=== PATIENT | female | born 1995 | race African-American/Black ===

== ENCOUNTER 2024-09-13 12:12 | Emergency (ER) | payer OTHER, SELFPAY ==
[2024-09-13 12:30] VITALS: BP 132/83; PULSE 80; RESP 16; TEMP 36.3; O2SAT 100
--- NOTE | 2024-09-13 12:43 | ED.URI ---
HPI - URI/Sore Throat General Chief Complaint: Upper Respiratory Infection Stated Complaint: NAUSEA/VOMITING/SORE THROAT/BLOOD IN MUCUS Time Seen by Provider: 09/13/24 12:36 Source: patient and RN notes reviewed Mode of arrival: ambulatory Limitations: no limitations History of Present Illness HPI Narrative: Patient presents today complaining of intermittent nausea x1 week with nasal congestion, headache, decreased appetite. She does report sore throat that started yesterday as well. Denies diarrhea, fever, abdominal pain. She has done 3 home tests that have been negative. Last was 2 days ago. She currently rates her pain 4/10 and has tried Anjelica and Tylenol without much relief. Related Data Home Medications ?Medication ?Instructions ?Recorded ?Confirmed ?Last Taken ?Type albuterol sulfate 90 mcg/actuation inhalation 09/13/24 Unknown History aerosol inhaler fluticasone furoate 100 inhalation 09/13/24 Unknown History mcg-vilanterol 25 mcg/dose inhalation powder (Breo Ellipta) Allergies Allergy/AdvReac Type Severity Reaction Status Date / Time pseudoephedrine (From Allergy Unknown Unknown Verified 09/13/24 12:30 Sudafed) Review of Systems Review of Systems: CONSTITUTIONAL: Denies body aches, fever, chills, or sweats. EYES: Denies visual changes, redness, or discharge. ENT: Denies rhinorrhea, or otalgia.+ sore throat, congestion CARDIOVASCULAR: Denies chest pain, palpitations, or edema. RESPIRATORY: Denies cough or dyspnea. GASTROINTESTINAL: Denies abdominal pain, vomiting, or diarrhea.+ nausea GENITOURINARY: Denies dysuria or hematuria. SKIN: Denies rash, itching, or wounds. MUSCULOSKELETAL: Denies back pain, joint pain, or myalgia. NEUROLOGIC: Denies numbness, tingling, or weakness.+ headache PSYCH: Denies depression or anxiety. PMFSH Comments At time of signature, I have reviewed and agree with nursing past medical, surgical, social and family history unless otherwise noted. Please see nursing chart for further information. There is no relevant family history pertinent to the presenting complaint Exam Narrative: GENERAL: Well-appearing, well-nourished, and in no acute distress. HEAD: Normocephalic, atraumatic. EYES: EOMI. No redness or drainage. Conjunctivae normal. ENT: Mucous membranes pink and moist. Nares clear. No rhinorrhea. TMs normal bilaterally. Throat with mild edema and erythema. Uvula midline. NECK: Normal AROM. Supple. No lymphadenopathy. CHEST: No respiratory distress. Clear to auscultation. HEART: Regular rate and rhythm. No murmur appreciated. ABDOMEN: Soft, nontender, nondistended, normal active bowel sounds. EXTREMITIES: Normal range of motion. No edema. SKIN: Warm, dry, no rash. Capillary refill normal. Normal skin turgor. NEURO: No focal deficits. Alert and oriented x3. Gait steady. PSYCH: Normal affect. No signs of depression or anxiety. Course Course Level of Care: Express Care Visit Vital Signs Vital signs: Vital Signs Temperature 97.4 F L 09/13/24 12:30 Pulse Rate 80 09/13/24 12:30 Respiratory Rate 16 09/13/24 12:30 Blood Pressure 132/83 09/13/24 12:30 Pulse Oximetry 100 09/13/24 12:30 Temperature 97.4 F L 09/13/24 12:30 Pulse Rate 80 09/13/24 12:30 Respiratory Rate 16 09/13/24 12:30 Blood Pressure 132/83 09/13/24 12:30 Pulse Oximetry 100 09/13/24 12:30 Reviewed MDM - URI/Sore Throat MDM Narrative Medical decision making narrative: Rapid strep negative. Culture pending. Symptoms likely viral in etiology. Discussed efyi-eim-pxiocbe medication use and duration of illness. Prescription for Zofran sent to pharmacy. Anticipatory guidance given. Differential Diagnosis Differential diagnosis: Likely upper respiratory infection, viral infection, pharyngitis and other (Strep) Lab Data Attestation: I reviewed the patient's lab results. Labs: Lab Results 09/13/24 Range/Units 12:56 POC Grp A Strep Screen Negative (Negative) Critical Care Time Critical Care Time Critical Care Time: No Discharge Plan Discharge Clinical Impression: Viral syndrome Patient Disposition: Home Condition: Stable Instructions: Acute Nausea and Vomiting (DC), Viral Syndrome (ED) Additional Instructions: Your rapid strep swab was negative today at [facility]. You will be notified in a few days if the culture comes back positive for strep, and appropriate antibiotics will be called in for you at that time. Your symptoms are likely due to a viral illness, which is not treated with antibiotics. Viral symptoms can be present for up to 7-10 days. Take Tylenol or ibuprofen for fever or pain. Take the Zofran for nausea. Rest and stay hydrated. Follow up with your PCP in 5 days if symptoms are not improving. Go to the ER immediately if you have any difficulty breathing or swallowing. Your blood pressure was elevated above 120/80 today at Urgent Care. This puts you above the threshold for follow up. Please schedule a followup visit with your personal physician as soon as possible, for further evaluation and treatment. Even blood pressure exceeding 120/80 may indicate pre-hypertension. Patient Language: [place] Island[place] Prescriptions: New ondansetron 8 mg tablet,disintegrating 8 mg PO Q4-6H PRN (Reason: nausea and vomiting) Qty: 20 0RF No Action albuterol sulfate 90 mcg/actuation HFA aerosol inhaler INHALATION fluticasone furoate-vilanterol [Breo Ellipta] 100-25 mcg/dose blister with device INHALATION Follow-up/Referrals: Reece,Laurie [Other] Stand Alone Forms: Work/School Release IP Time of Disposition: 13:11
[2024-09-13 12:57] LABS: EDSTREPNEGPOS1 Negative (Negative)
== END 2024-09-13 13:17 | disposition home or self-care (01) ==
PROVIDERS: Emergency Provider Nurse Practitioner
DX: B34.9 Viral infection, unspecified (principal); J45.909 Unspecified asthma, uncomplicated
CPT/HCPCS: 87081; 87880; 99213; G0463

== ENCOUNTER 2024-09-21 16:20 | Emergency (ER) | payer OTHER, SELFPAY ==
--- NOTE | ~2024-09-21 | XR_ITS ---
XR chest 2V Ordering provider: Dillon Velarde MD History: 28 years Female with . cp . Comparison: None. FINDINGS: MEDIASTINUM: The cardiac silhouette is not enlarged. LUNGS: No infiltrates, effusions or pneumothorax. OTHER: No free air under the diaphragm. IMPRESSION: No acute cardiopulmonary pathology. Reviewed, dictated and finalized at location A.
--- NOTE | 2024-09-21 16:21 | ECG_ITS ---
Test Date: 2024-09-21 16:24:27 Measurements Intervals Kiana Rate: 80 P: 47 WA: 136 QRS: -6 QRSD: 88 T: 4 QT: 350 QTc: 405 Interpretive Statements SINUS RHYTHM DELAYED PRECORDIAL R/S TRANSITION LOW QRS VOLTAGE IN PRECORDIAL LEADS BORDERLINE T WAVE ABNORMALITY- ANTEROLAT/INF LEADS BORDERLINE ECG No previous ECG available for comparison Electronically Signed On 09-21-2024 18:41:13 CDT by Trey Downey D.O.
--- OUTSIDE RECORDS SUMMARY | 2024-09-21 16:22 | XMS_ITS | Referral Summary ---
Author Organization [facility] Address [address] [place] [id number] Care Team Providers Care Locomotive Observer Name Role Phone Laurie Newell DO Primary Care Provider [phone]- [phone] Chaparro Reza MD Unavailable [phone] Encounters Date Type Department Care Team Description 07/14/2024 Results Follow-Up [facility] Pulmonology [address] [place] [address] [address] [place] [address] Chaparro Reza MD 07/14/2024 9:40 AM PASSENGER BRAKEMAN Lab [facility] Lab [address] [place] [address] Moderate persistent asthma with acute exacerbation 07/14/2024 8:30 AM PASSENGER BRAKEMAN Office Visit [facility] Pulmonology [address] [place] [address] [address] [place] [address] Chaparro Reza MD Pneumonia of both lungs due to infectious organism, unspecified part of lung; Moderate persistent asthma with acute exacerbation; Hilar adenopathy; Nodule of lower lobe of left lung 06/27/2024 Telephone [facility] Family Medicine at [place] [address] [facility] [address] [place] [phone] Laurie Newell DO Forms Request from Last 3 Months Allergies Active Allergy Reactions Criticality Noted Date Comments Pseudoephedrine Shortness of breath,Wheezing High Medications fexofenadine (SCOTT) 180 mg tabletIndicatio ns:Seasonal Allergic Rhinitis Take 1 tablet (180 mg total) by mouth nightly Active fluticasone propionate (FLONASE) 50 mcg/actuation nasal spray Administer 1 spray into each nostril nightly Active ibuprofen (ADVIL,MOTRIN) 800 mg tabletIndicatio ns:Anti-inflamm atory,Pain Take 1 tablet (800 mg total) by mouth 3 (three) times a day 21 tablet 1 Active acetaminophen (TYLENOL) 325 mg tablet Take 2 tablets (650 mg total) by mouth every 4 (four) hours as needed for pain 30 tablet 1 Active famotidine (PEPCID) 40 mg tablet Take 1 tablet (40 mg total) by mouth nightly as needed for heartburn for up to 20 days 20 tablet 1 Active buPROPion XL (WELLBUTRIN XL) 150 mg 24 hr tablet Take 1 tablet (150 mg total) by mouth daily 3 Active ipratropium-alb uteroL (DUO-NEB) 0.5-2.5 mg/3 mL nebulizer solution Take 3 mL by nebulization 4 (four) times a day as needed for wheezing 180 mL 11 5 Active montelukast (SINGULAIR) 10 mg tablet TAKE 1 TABLET(10 MG) BY MOUTH EVERY NIGHT 90 tablet 1 5 Active fluticasone furoate-vilante roL (Breo Ellipta) 100-25 mcg/dose diskus inhaler Inhale 1 puff daily Rinse mouth with water after use. Do not swallow. 3 each 5 11/10/19 25 Active albuterol HFA (PROVENTIL HFA,VENTOLIN HFA,PROAIR HFA) 90 mcg/actuation inhalerIndicati ons:Acute Asthma Attack,last used 02/2020 1 week ago Inhale 2 puffs every 4 (four) hours as needed for wheezing or shortness of breath 1 each 5 Active budesonide-form oteroL (SYMBICORT) 160-4.5 mcg/actuation inhaler Inhale 2 puffs 2 (two) times a day Rinse mouth with water after use. Do not swallow. 3 each 3 5 Active Active Problems Problem Noted Date Diagnosed Date Class 3 severe obesity due t o excess calories without serious comorbidity with body mass index (BMI) of 60.0 to 69.9 in adult 06/19/2024 Assessment & Plan (06/19/2024 9:33 AM PASSENGER BRAKEMAN): Weight reduction, daily exercise and dietary modifications recommended., as obesity can complicate their asthma Nodule of lower lobe of left lung 06/19/2024 Assessment & Plan (06/19/2024 9:34 AM PASSENGER BRAKEMAN): Nodule is stable when compared to CT scan of chest from 2020. Referred to pulmonology for further evaluation management. Hilar adenopathy 06/19/2024 Assessment & Plan (06/19/2024 9:34 AM PASSENGER BRAKEMAN): Noted on recent CT scan of chest, referred to pulmonology for further evaluation and management. Pneumonia of both lungs due to infectious organi sm 06/19/2024 Assessment & Plan (06/19/2024 9:34 AM PASSENGER BRAKEMAN): Clinically improved. Patient will be completing her Augmentin today. She finished a course of Z-Garfield and oral prednisone. Referred to pulmonology for further evaluation management. Right carpal tunnel syndrome 02/05/2020 Overview (02/05/2020): Added automatically from request for surgery [id number] Enlarged tonsils 08/08/2012 Bronchial asthma 03/26/2012 Assessment & Plan (06/19/2024 9:33 AM PASSENGER BRAKEMAN): History of asthma. Patient had been off medications for awhile because she lost insurance. She does have albuterol inhaler but has not tried to fern picker a Breo Ellipta yet. She is currently insured. Suggested that she try to download coupon for Breo Ellipta. Referred to pulmonology for further evaluation management. Encouraged patient to quit using cannabis, as this may be a trigger for her asthma. Hay fever 03/26/2012 Snoring 03/26/2012 Heart murmur 02/29/2012 Immunizations Immunization Administration Dates Next Due HPV, Quadrivalent 01/18/2011,12/28/2009,12/24/19 09 Hep A, Pediatric 01/18/2011,12/23/2008 Influenza, Quadrivalent, Spl it, Preservative Free, Intramuscular 04/19/2021 Influenza, Trivalent, Preser vative Free, Intramuscular 04/14/2024 Influenza, Unspecified 02/25/2023(Deferred: Nancy ent Refused) Meningococcal MCV4, Unspecified 02/24/2013 Pneumococcal Conjugate Pcv20 07/14/2024 Tdap 12/23/2008 Social History Tobacco Use Types Packs/Day Years Used Date Smoking Tobacco: Never Cigarettes Smokeless Tobacco: Never Tobacco Cessation:Counseling Given: Not Answered Alcohol Use Standard Drinks/Week Comments Yes 0 (1 standard drink = 0.6 oz pur e alcohol) 1 every 1-2 months AUDIT-C Answer Date Recorded Q1: How often do you have a drink containing alc ohol? Monthly or less 06/19/2024 Q2: How many drinks containi ng alcohol do you have on a typical day when you are drinking? 1 or 2 06/19/2024 Q3: How often do you have si x or more drinks on one occasion? Never 06/19/2024 PHQ-2 Answer Date Recorded PHQ-2 Total Score 2 06/19/2024 Personal Safety Answer Date Recorded Have you ever been in or are you currently in a harmful physical or emotional relationship or is someone making you feel afraid or unsafe? Denies 06/09/2024 Comments No Sex and Gender Information Value Date Recorded Sex Assigned at Not on file Legal Sex Female 4:31 AM PASSENGER BRAKEMAN Gender Identity Not on file Sexual Orientation Not on file Last Filed Vital Signs Vital Sign Reading Time Taken Comments Blood Pressure 145/88 07/14/2024 8:34 AM PASSENGER BRAKEMAN Pulse 95 07/14/2024 8:34 AM PASSENGER BRAKEMAN Temperature 36.6 C (97.9 F) 07/14/2024 8:34 AM PASSENGER BRAKEMAN Respiratory Rate 18 07/14/2024 8:34 AM PASSENGER BRAKEMAN Oxygen Saturation 98% 07/14/2024 8:34 AM PASSENGER BRAKEMAN Inhaled Oxygen Concentration - - Weight 193.2 kg (426 lb) 07/14/2024 8:34 AM PASSENGER BRAKEMAN Height 170.2 cm (5' 7.01 ) 07/14/2024 8:34 AM CS T Body Mass Index 66.71 07/14/2024 8:34 AM PASSENGER BRAKEMAN Plan of Treatment Not on file Procedures Procedure Name Priority Date/Time Associated Diagnosis Comments IGG Routine 07/14/2024 10:17 AM PASSENGER BRAKEMAN Moderate persistent asthma with acute exacerbation ANGIOTENSIN CONVERTING ENZYME Routine 07/14/2024 10:17 AM PASSENGER BRAKEMAN Moderate persistent asthma with acute exacerbation IGE Routine 07/14/2024 10:17 AM PASSENGER BRAKEMAN Moderate persistent asthma with acute exacerbation IGM Routine 07/14/2024 10:17 AM PASSENGER BRAKEMAN Moderate persistent asthma with acute exacerbation from Last 3 Months Results * (ABNORMAL) Angiotensin converting enzyme (07/14/2024 10:17 AM PASSENGER BRAKEMAN) ITKI 71(H) 10 - 55 Units/L Comment:Testing performed by : [facility], [address] [place]., [address] Blood 07/14/2024 10:1 7 AM PASSENGER BRAKEMAN 07/14/2024 1:48 PM PASSENGER BRAKEMAN Chaparro Reza MD LAB BLOOD ORDERABLES Final R esult Performing Organization Address [facility] de Phone Number [address] [employer] [place] [address] * (ABNORMAL) IgE (07/14/2024 10:17 AM PASSENGER BRAKEMAN) IgE 174(H) <=100 IUnits/mL Blood 07/14/2024 10:1 7 AM PASSENGER BRAKEMAN 07/14/2024 10:39 AM PASSENGER BRAKEMAN Chaparro Reza MD LAB BLOOD ORDERABLES Final R esult Performing Organization Address [facility] Co de Phone Number [address] [place] [place] [address] * IgM (07/14/2024 10:17 AM PASSENGER BRAKEMAN) Immunoglobulin M 67 40 - 230 mg/dL Blood 07/14/2024 10:1 7 AM PASSENGER BRAKEMAN 07/14/2024 10:39 AM PASSENGER BRAKEMAN Chaparro Reza MD LAB BLOOD ORDERABLES Final R esult Performing Organization Address [facility] Co de Phone Number [id number] [place] [address] * IgG (07/14/2024 10:17 AM PASSENGER BRAKEMAN) Immunoglobulin G 1,430 700 - 1,600 mg/dL Blood 07/14/2024 10:1 7 AM PASSENGER BRAKEMAN 07/14/2024 10:39 AM PASSENGER BRAKEMAN Chaparro Reza MD LAB BLOOD ORDERABLES Final R esult Performing Organization Address [facility] de Phone Number [id number] [place] [address] from Last 3 Months Insurance [employer] Address: [facility] [id number] [place] [id number] [employer] Address: [facility] [address] [place] [address] BERT DUNN [id number] Care Teams Locomotive Observer Relationship Specialty Start Date End Date Laurie Newell DO [address] [address] [address] [place] [address] PCP - General Family Medicine 06/19/24 Chaparro Reza MD [address] [facility] [address] [place] [address] Consulting Physician Pulmonary Disease 09/11/24
--- OUTSIDE RECORDS SUMMARY | 2024-09-21 16:22 | XMS_ITS | Clinical Summary ---
Author Organization [facility] Address [address] [place] [address] Care Team Providers Care Hot Bread Baker Name Role Phone Laurie Newell Primary Care Provider [phone] Chaparro Reza MD Unavailable [phone] Allergies Active Allergy Reactions Criticality Noted Date [...] 06/19/2024 Assessment & Plan (06/19/2024 9:33 AM FOOD AND BEVERAGE ANALYST): Weight reduction, daily exercise and dietary modifications recommended., as obesity can complicate their asthma Nodule of lower lobe of left lung 06/19/2024 Assessment & Plan (06/19/2024 9:34 AM FOOD AND BEVERAGE ANALYST): Nodule is stable when compared to CT scan of chest from 2020. Referred to pulmonology for further evaluation management. Hilar adenopathy 06/19/2024 Assessment & Plan (06/19/2024 9:34 AM FOOD AND BEVERAGE ANALYST): Noted on recent CT scan of chest, referred to pulmonology for further evaluation and management. Pneumonia of both lungs due to infectious organi sm 06/19/2024 Assessment & Plan (06/19/2024 9:34 AM FOOD AND BEVERAGE ANALYST): Clinically improved. Patient will be completing her Augmentin today. She finished a course of Z-Garfield and oral prednisone. Referred to pulmonology for further evaluation management. Right carpal tunnel syndrome 02/05/2020 Overview (02/05/2020): Added automatically from request for surgery [id number] Enlarged tonsils 08/08/2012 Bronchial asthma 03/26/2012 Assessment & Plan (06/19/2024 9:33 AM FOOD AND BEVERAGE ANALYST): History of asthma. Patient had been off medications for awhile because she lost insurance. She does have albuterol inhaler but has not tried to pick out hand a Breo Ellipta yet. She is currently insured. Suggested that she try to download coupon for Breo Ellipta. Referred to pulmonology for further evaluation management. Encouraged patient to quit using cannabis, as this may be a trigger for her asthma. Hay fever 03/26/2012 Snoring 03/26/2012 Heart murmur 02/29/2012 Encounters Date Type Department Care Team Description 07/14/2024 9:40 AM FOOD AND BEVERAGE ANALYST Lab [facility] Lab [address] [place] [address] Moderate persistent asthma with acute exacerbation 07/14/2024 8:30 AM FOOD AND BEVERAGE ANALYST Office Visit [facility] Pulmonology [address] [place] [address] [address] [place] [address] Chaparro Reza MD Pneumonia of both lungs due to infectious organism, unspecified part of lung; Moderate persistent asthma with acute exacerbation; Hilar adenopathy; Nodule of lower lobe of left lung 07/14/2024 Results Follow-Up [facility] Pulmonology [address] [place] [address] [address] [place] [address] Chaparro Reza MD 06/27/2024 Telephone [facility] Family Medicine at [place] [address] [facility] [address] [place] [address] Laurie Newell, Forms Request from Last 3 Months Immunizations Immunization Administration Dates Next Due HPV, Quadrivalent 01/18/2011,12/28/2009,12/24/19 09 Hep A, Pediatric 01/18/2011,12/23/2008 Influenza, Quadrivalent, Spl it, Preservative Free, Intramuscular 04/19/2021 Influenza, Trivalent, Preser vative Free, Intramuscular 04/14/2024 Influenza, Unspecified 02/25/2023(Deferred: Nancy ent Refused) Meningococcal MCV4, Unspecified 02/24/2013 Pneumococcal Conjugate Pcv20 07/14/2024 Tdap 12/23/2008 Surgical History Surgery Date Site/Laterality Comments CARPAL TUNNEL RELEASE Right DILATION AND CURETTAGE OF UTERUS Medical History Medical History Date Comments Asthma Seasonal allergies Carpal tunnel syndrome GERD (gastroesophageal reflux disease) Anxiety Depression Sleep apnea Family History Medical History Relation Name Comments Blood Clot Brother I.B. Heart disease Brother I.B. polyarteritis nodosa Brother I.B. Gout Father J.B. Hypertension Father J.B. Hypertension Mother L.B. Anesthesia problems Neg Hx Relation Name Status Comments Brother I.B. Alive Father J.B. Alive Mother L.B. Alive Social History Tobacco Use Types Packs/Day Years [...] on file Legal Sex Female 4:31 AM FOOD AND BEVERAGE ANALYST Gender Identity Not on file Sexual Orientation Not on file Obstetrics History Last Filed Vital Signs Vital Sign Reading Time Taken Comments Blood Pressure 145/88 07/14/2024 8:34 AM FOOD AND BEVERAGE ANALYST Pulse 95 07/14/2024 8:34 AM FOOD AND BEVERAGE ANALYST Temperature 36.6 C (97.9 F) 07/14/2024 8:34 AM FOOD AND BEVERAGE ANALYST Respiratory Rate 18 07/14/2024 8:34 AM FOOD AND BEVERAGE ANALYST Oxygen Saturation 98% 07/14/2024 8:34 AM FOOD AND BEVERAGE ANALYST Inhaled Oxygen Concentration - - Weight 193.2 kg (426 lb) 07/14/2024 8:34 AM FOOD AND BEVERAGE ANALYST Height 170.2 cm (5' 7.01 ) 07/14/2024 8:34 AM CS T Body Mass Index 66.71 07/14/2024 8:34 AM FOOD AND BEVERAGE ANALYST Plan of Treatment Health Maintenance Due Date Last Done Comments Hepatitis C Screening 1996 Hepatitis B Screening 2014 Regular Well Visit/Exam 18-64 2014 Covid-19 Vaccine ( season) 2025 09/22/2020, 09/01/2020 Postponed from 01/27/2024 (Patient declined, but will receive in the future) Depression Screening 06/19/2025 06/19/2024 Cervical Cancer Screening 07/18/2025 DTaP/Tdap/Td Vaccine (2 - Td or Tdap) 06/19/2027 12/23/2008 Postponed from 12/23/2018 (Insurance / Financial) HPV Vaccines Completed 01/18/2011, 12/28/2009, 12/23/2008 Influenza Vaccine Completed 04/14/2024, 04/19/2021 Pneumococcal vaccine <65 Completed 07/14/2024 Varicella Vaccines Discontinued Procedures Procedure Name Priority Date/Time Associated Diagnosis Comments IGG Routine 07/14/2024 10:17 AM FOOD AND BEVERAGE ANALYST Moderate persistent asthma with acute exacerbation ANGIOTENSIN CONVERTING ENZYME Routine 07/14/2024 10:17 AM FOOD AND BEVERAGE ANALYST Moderate persistent asthma with acute exacerbation IGE Routine 07/14/2024 10:17 AM FOOD AND BEVERAGE ANALYST Moderate persistent asthma with acute exacerbation IGM Routine 07/14/2024 10:17 AM FOOD AND BEVERAGE ANALYST Moderate persistent asthma with acute exacerbation from Last 3 Months Results * (ABNORMAL) Angiotensin converting enzyme (07/14/2024 10:17 AM FOOD AND BEVERAGE ANALYST) TIKI 71(H) 10 - 55 Units/L Comment:Testing performed by : [facility], [address] [facility]., [address] Blood 07/14/2024 10:1 7 AM FOOD AND BEVERAGE ANALYST 07/14/2024 1:48 PM FOOD AND BEVERAGE ANALYST Chaparro Reza MD LAB BLOOD ORDERABLES Final R esult Performing Organization Address City/[facility] Co de Phone Number [address] [place] [address] * (ABNORMAL) IgE (07/14/2024 10:17 AM FOOD AND BEVERAGE ANALYST) Pathologist [facility] IgE 174(H) <=100 IUnits/mL Blood 07/14/2024 10:1 7 AM FOOD AND BEVERAGE ANALYST 07/14/2024 10:39 AM FOOD AND BEVERAGE ANALYST Chaparro Reza MD LAB BLOOD ORDERABLES Final R esult Performing Organization Address City/[facility] Co de Phone Number [address] [place] [address] * IgM (07/14/2024 10:17 AM FOOD AND BEVERAGE ANALYST) Pathologist [facility] Immunoglobulin M 67 40 - 230 mg/dL Blood 07/14/2024 10:1 7 AM FOOD AND BEVERAGE ANALYST 07/14/2024 10:39 AM FOOD AND BEVERAGE ANALYST Chaparro Reza MD LAB BLOOD ORDERABLES Final R esult Performing Organization Address City/[facility] Co de Phone Number [address] [place] [address] * IgG (07/14/2024 10:17 AM FOOD AND BEVERAGE ANALYST) Pathologist [facility] Immunoglobulin G 1,430 700 - 1,600 mg/dL Blood 07/14/2024 10:1 7 AM FOOD AND BEVERAGE ANALYST 07/14/2024 10:39 AM FOOD AND BEVERAGE ANALYST Chaparro Reza MD LAB BLOOD ORDERABLES Final R esult [facility] [address] [facility] Department [place] [address] from Last 3 Months Insurance [employer] Address: [facility] [id number] [place] [address] [employer] Care Teams Hot Bread Baker Relationship Specialty Start Date End Date NewellLaurie DO Aleksander [address] [facility] [address] [place] [address] PCP - General Family Medicine 06/19/24 Chaparro Reza MD [address] [facility] [address] [place] [address] Consulting Physician Pulmonary Disease 09/11/24
--- OUTSIDE RECORDS SUMMARY | 2024-09-21 16:22 | XMS_ITS | Clinical Summary ---
Author Organization [facility] [place] Address [address] [place] [place] [address] Care Team Providers Care Domestic Technician Name Role Phone Sahara Bragg MD Primary Care Provider [phone] Source Comments [facility] and Associated Physician Practices is amultiple site organization consisting of ambulatory clinics and hospital sitesin [place], [place], [place] and [place]. This disclosure is being madepursuant to the Care Everywhere program and may not contain all information available regarding this patient. Last updated 18.[facility] [place] Allergies Active Allergy Reactions Criticality Noted Date Comments Pseudoephedrine Base Shortness of Breath,Swelling High 02/13/2019 Medications * Be aware that medications may not be up to date on this document. Alwaysverify current medications with the patient. famotidine (Pepcid) 40 MG tablet Take 1 (one) tablet by mouth as needed 02/15/2021 Active fluticasone-agustin anterol (Breo Ellipta) 100-25 MCG/INH inhaler INHALE 1 PUFF BY MOUTH ONCE DAILY AT THE SAME TIME EACH DAY 11/01/2020 Active albuterol HFA (Proventil; Ventolin; Proair) 108 (90 Base) MCG/ACT inhaler INHALE 2 PUFFS BY MOUTH EVERY 4 TO 6 HOURS NEEDED 11/01/2020 Active buPROPion XL 24hr (Wellbutrin-XL) 150 MG tablet 11/12/2022 Activ e fluticasone propionate (Flonase) 50 MCG/ACT nasal spray [place] 2 (two) sprays into each nostril once daily Active metFORMIN ER 24hr (Glucophage XR) 500 MG tablet Take 2 (two) tablets by mouth every evening 90 tablet 2 06/18/2023 Active Active Problems Problem Noted Date Diagnosed Date Class 3 severe obesity due t o excess calories with serious comorbidity and body mass index (BMI) of 60.0 to 69.9 in adult 01/22/2023 Prediabetes 01/22/2023 Unspecified asthma with (acute) exacerbation Wheezing 01/19/2022 Right carpal tunnel syndrome 02/05/2020 Overview (01/19/2022): Added automatically from request for surgery [id number] Enlarged tonsils 08/08/2012 Snoring 03/26/2012 Hay fever 03/26/2012 Bronchial asthma 03/26/2012 Heart murmur 02/29/2012 DELLA (obstructive sleep apnea) Immunizations Immunization Administration Dates Next Due HEP A PEDS 2 DOSE 01/18/2011,12/23/2008 Human Papilloma Virus Quadrivalent Vaccine 01/18,12/28/2009,12/23/2008 INFLUENZA VACCINE, QUADR. (F LUZONE; FLULAVAL; FLUARIX; AFLURIA QUADRIVALENT; 6MO+), 0.5 ML (IIV4) 04/19/2021 MENINGOCOCCAL ACWY (MCV4P) VAC IM 02/24/2013 TDAP, HISTORIC VACCINE 12/23/2008 Family History Medical History Relation Name Comments CAD (Coronary Artery Disease) Brother Arthritis - Osteo Father Hypertension Father Asthma Maternal Grandmother Diabetes - Type 2 Maternal Grandmother Hypertension Mother Cancer - Breast Other Diabetes - Type 2 Paternal Grandmother Hypertension Paternal Grandmother Relation Name Status Comments Brother Father Alive Maternal Grandmother Mother Alive Other Paternal Grandmother Social History Tobacco Use Types Packs/Day Years Used Date Smoking Tobacco: Never Smokeless Tobacco: Never Tobacco Cessation:Counseling Given: Not Answered Alcohol Use Standard Drinks/Week Comments Yes 0 (1 standard drink = 0.6 oz pur e alcohol) occ AUDIT-C Answer Date Recorded Q1: How often do you have a drink containing alc ohol? Never 08/10/2021 Average Number of Drinks Not on file 022 Q3: How often do you have si x or more drinks on one occasion? 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 file Not on file Last Filed Vital Signs Vital Sign Reading Time Taken Comments Blood Pressure 124/90 06/22/2023 11:31 AM MAINSPRING TORQUE TESTER Pulse 91 06/22/2023 11:31 AM [employer]INSPRING TORQUE TE[employer] Temperature 36.7 C (98 F) 06/22/2023 11:31 AM MAINSPRING TORQUE TESTER Respiratory Rate 17 05/14/2023 2:05 PM MAINSPRING TORQUE TESTER Oxygen Saturation 99% 06/22/2023 11:31 AM MAINSPRING TORQUE TESTER Inhaled Oxygen Concentration - - Weight 191.4 kg (422 lb) 06/22/2023 11:44 AM MAINSPRING TORQUE TESTER Height 167.6 cm (5' 6 ) 06/22/2023 11:44 AM MAINSPRING TORQUE TESTER Body Mass Index 68.11 06/22/2023 11:44 AM MAINSPRING TORQUE TESTER Plan of Treatment Health Maintenance Due Date Last Done Comments HIV SCREENING 10/07/2011 HEPATITIS C SCREENING 10/02/2014 HEPATITIS B VACCINE (1 of 3 - 19+ 3-dose series) 10/07/2015 PNEUMOCOCCAL VACCINE (1 of 2 - PCV) 10/07/2015 DTAP/TDAP/TD VACCINES (2 - T d or Tdap) 12/23/2018 12/23/2008 COVID-19 VACCINE (3 - 2023-2 5 season) 2024 09/22/2020, 09/01/2020 DEPRESSION SCREENING 05/28/2024 11/18/2022, 01/19/2022 INFLUENZA VACCINE (Season Ended) 2025 04/19/2021 PAP SMEAR 07/18/2025 07/18/2022, 12/28/2017 ZOSTER VACCINE (1 of 2) 2046 HPV VACCINE Completed 01/18/2011, 12/28/2009, 12/23/2008 MENINGOCOCCAL GROUPS A/C/Y/W VACCINE Completed 02/24/2013 HIB VACCINE Aged Out No longer eligi ble based on patient's age to complete this topic MENINGOCOCCAL (Group B) VACCINE SHARED DECISION-MAKING Aged Out No longer eligible based on patient's age to complete this topic Procedures Procedure Name Priority Date/Time Associated Diagnosis Comments PAP IG LB CT+NG+TV RFLX HPV ASCU Routine 07/18/2022 4:10 PM MAINSPRING TORQUE TESTER Well woman exam from Last 3 Months or Most Recently Relevant to Health Maintenance Results * PAP IG LB CT+NG+TV RFLX HPV ASCU (07/18/2022 4:10 PM MAINSPRING TORQUE TESTER) Diagnosis [facility] ACCOUNT BILL Comment:NEGATIVE FOR INTRAEP ITHELIAL LESION OR MALIGNANCY. Specimen Adequacy [facility] ACCOUNT BILL Comment: Satisfactory for evaluation. Endocervical and/or squamous metaplastic cells (endocervical component) are present. Clinician Provided ICD10 [facility] ACCOUNT BILL Comment: Z01.419 Z68.44 N92.1 Performed by [facility] ACCOUNT BILL Comment:Arik Grace, Electronics Supervisor (ASCP) Comment . [facility] ACCOUNT BILL Note [facility] ACCOUNT BILL Comment: The Pap smear is a screening test designed to aid in the detection of premalignant and malignant conditions of the uterine cervix. It is not a diagnostic procedure and should not be used as the sole means of detecting cervical cancer. Both false-positive and false-negative reports do occur. . IGLBP CPT Code Automation [facility] ACCOUNT BILL Comment: This liquid based ThinPrep(R) pap test was screened with the use of an image guided system. Note [facility] ACCOUNT BILL Comment: The HPV DNA reflex criteria were not met with this specimen result therefore, no HPV testing was performed. . Chlamydia trachomatis MASSIMO Negative Negative [facility] ACCOUNT BILL GC MASSIMO Negative Negative [facility] ACCOUNT BILL Trichomonas vaginalis by MASSIMO Negative Negative [facility] ACCOUNT BILL PART OF UTERINE CERVIX / Unknown 07/18/2022 4:10 PM MAINSPRING TORQUE TESTER 07/19/2022 Narrative [facility] ACCOUNT BILL - 07/24/2022 9:08 AM MAINSPRING TORQUE TESTER No. of containers..01 ThinPrep Vial Resulting Agency Comment Lab Testing performed at: [facility] [place] [id number] Jacquelyn Orozco DO LAB - PATHOLOGY/CYTOLOGY ORDERAB LES Final Result [facility] ACCOUNT BILL [id number] [place] [address] from Last 3 Months or Most Recently Relevant to Health Maintenance Insurance [facility] Care Teams Domestic Technician Relationship Specialty Start Date End Date Sahara Bragg MD [address] [place] [address] PCP - General Family Medicine 10/30/22
--- OUTSIDE RECORDS SUMMARY | 2024-09-21 16:22 | XMS_ITS | Clinical Summary ---
Author Organization [facility] Address [address] [place] [address] Phone Care Team Providers Care Media Professional Name Role Phone Unavailable Primary Care Provider Unavailabl e Social History Tobacco Use Types Packs/Day Years Used Date Smoking Tobacco: Never Assessed Comments Unknown Sex and Gender Information Value Date Recorded Sex Assigned at Not on file Legal Sex Female 2:52 PM COLOR MATCHER Gender Identity Not on file Sexual Orientation Not on file Plan of Treatment Health Maintenance Due Date Last Done Comments DTAP/TDAP/TD VACCINES (1 - Tdap) 10/07/2015 HEPATITIS B VACCINES (1 of 3 - 19+ 3-dose series) 10/07/2015 CERVICAL CANCER SCREENING 2017 HPV/Cotest (21-29) 2017 PAP SMEAR 2017 INFLUENZA VACCINE (#1) 2023 HPV VACCINES Aged Out No longer eligi ble based on patient's age to complete this topic
--- OUTSIDE RECORDS SUMMARY | 2024-09-21 16:22 | XMS_ITS | Encounter Summary ---
Author Organization [facility] Address [address] [place] [address] Care Team Providers Care Manager Stylist Name Role Phone Unavailable Primary Care Provider Unavailabl e Encounter Details Date Type Department Care Team (Late st Contact Info) Description 06/21/2021 Lab Requisition [facility] General Laboratory Services [address] [employer] [address] [place] [address] [facility], External Provider [address] [place] [address] Social History Tobacco Use Types Packs/Day Years Used Date Smoking Tobacco: Never Assessed Comments Unknown Sex and Gender Information Value Date Recorded Sex Assigned at Not on file Legal Sex Female 2:52 PM ASSOCIATE SOFTWARE APPLICATION ENGINEER Gender Identity Not on file Sexual Orientation Not on file documented as of this encounter Plan of Treatment Not on file documented as of this encounter Procedures Procedure Name Priority Date/Time Associated Diagnosis Comments CBC WITH DIFFERENTIAL Routine 06/21/2021 12:00 PM ASSOCIATE SOFTWARE APPLICATION ENGINEER VITAMIN D 25 HYDROXY Routine 06/21/2021 12:00 PM ASSOCIATE SOFTWARE APPLICATION ENGINEER TSH Routine 06/21/2021 12:00 PM ASSOCIATE SOFTWARE APPLICATION ENGINEER HEMOGLOBIN A1C Routine 06/21/2021 12:00 PM ASSOCIATE SOFTWARE APPLICATION ENGINEER LIPID PANEL Routine 06/21/2021 12:00 PM ASSOCIATE SOFTWARE APPLICATION ENGINEER COMPREHENSIVE METABOLIC PANEL Routine 06/21/2021 12:00 PM ASSOCIATE SOFTWARE APPLICATION ENGINEER documented in this encounter Results * (ABNORMAL) VITAMIN D 25 HYDROXY (06/21/2021 12:00 PM ASSOCIATE SOFTWARE APPLICATION ENGINEER) VITAMIN D TOTAL (25OH) 9(L) 30 - 100 ng/mL 06/21/2021 3:54 PM ASSOCIATE SOFTWARE APPLICATION ENGINEER [facility] [employer] [facility] Blood 06/21/2021 12:0 0 PM ASSOCIATE SOFTWARE APPLICATION ENGINEER 06/21/2021 2:59 PM ASSOCIATE SOFTWARE APPLICATION ENGINEER Narrative [facility] - 06/21/2021 3:54 PM ASSOCIATE SOFTWARE APPLICATION ENGINEER Interpretive Data Chart: Deficient: 0 - 20 ng/mL Insufficient: 21 - 29 ng/mL Sufficient: 30 - 100 ng/mL Increased Risk of Hypercalciuria: >100 ng/ml Toxic: >150 ng/ml External Provider [facility] CHEMISTRY ORDERABLES Fin al Result Performing Organization Address City/[facility]/ZIP Co de Phone Number [facility] CLIA# [id number] [address] [place] [address] * TSH (06/21/2021 12:00 PM ASSOCIATE SOFTWARE APPLICATION ENGINEER) TSH 2.46 0.27 - 4.20 uIU/mL 06/21/2021 3:45 PM [facility] [employer] [facility] Blood 06/21/2021 12:0 0 PM ASSOCIATE SOFTWARE APPLICATION ENGINEER 06/21/2021 2:59 PM ASSOCIATE SOFTWARE APPLICATION ENGINEER External Provider [facility] CHEMISTRY ORDERABLES Fin al Result Performing Organization Address [facility] Co de Phone Number [id number] [address] [place] [address] * (ABNORMAL) HEMOGLOBIN A1C (06/21/2021 12:00 PM ASSOCIATE SOFTWARE APPLICATION ENGINEER) HEMOGLOBIN A1C 5.9(H) <5.7 % 06/21/2021 4:01 PM ASSOCIATE SOFTWARE APPLICATION ENGINEER [facility] [employer] [facility] EST. AVG GLUCOSE, A1C 123 mg/dL 06/21/2021 4:01 PM ASSOCIATE SOFTWARE APPLICATION ENGINEER [facility] [employer] [facility] Blood 06/21/2021 12:0 0 PM ASSOCIATE SOFTWARE APPLICATION ENGINEER 06/21/2021 2:59 PM ASSOCIATE SOFTWARE APPLICATION ENGINEER Narrative [facility] [employer] [facility] - 06/21/2021 4:01 PM ASSOCIATE SOFTWARE APPLICATION ENGINEER HGB A1C INTERPRETATION NORMAL: <5.7% PRE-DIABETES: 5.7 - 6.4% DIABETES: 6.5% OR GREATER External Provider [facility] CHEMISTRY ORDERABLES Fin al Result [facility] CLIA# [id number] [address] [address] * (ABNORMAL) CBC WITH DIFFERENTIAL (06/21/2021 12:00 PM ASSOCIATE SOFTWARE APPLICATION ENGINEER) [facility] WBC 9.0 4.0 - 9.8 K/uL 06/21/2021 3:27 PM ASSOCIATE SOFTWARE APPLICATION ENGINEER [facility] RBC 5.42(H) 3.90 - 4.90 M/uL 06/21/2021 3:27 PM ASSOCIATE SOFTWARE APPLICATION ENGINEER [facility] HEMOGLOBIN 14.0 11.8 - 14.8 g/dL 06/21/2021 3:27 PM ASSOCIATE SOFTWARE APPLICATION ENGINEER [facility] HEMATOCRIT 45.0(H) 35.5 - 44.0 % 06/21/2021 3:27 PM ASSOCIATE SOFTWARE APPLICATION ENGINEER [facility] MCV 83.0 82.0 - 99.0 fL 06/21/2021 3:27 PM ASSOCIATE SOFTWARE APPLICATION ENGINEER [facility] MCH 25.8(L) 27.2 - 32.6 pg 06/21/2021 3:27 PM ASSOCIATE SOFTWARE APPLICATION ENGINEER [facility] MCHC 31.1(L) 31.5 - 35.5 g/dL 06/21/2021 3:27 PM ASSOCIATE SOFTWARE APPLICATION ENGINEER [facility] RDW 14.4 11.5 - 14.5 % 06/21/2021 3:27 PM ASSOCIATE SOFTWARE APPLICATION ENGINEER [facility] RDW-STDEV 43.6 37.1 - 48.7 fL 06/21/2021 3:27 PM ASSOCIATE SOFTWARE APPLICATION ENGINEER [facility] PLATELETS 262 140 - 350 K/uL 06/21/2021 3:27 PM ASSOCIATE SOFTWARE APPLICATION ENGINEER [facility] MPV 10.8 9.3 - 12.4 fL 06/21/2021 3:27 PM ASSOCIATE SOFTWARE APPLICATION ENGINEER [facility] NEUTROPHILS 61 % 06/21/2021 3:27 PM [facility] LYMPHOCYTES 26 % 06/21/2021 3:27 PM [facility] MONOCYTES 6 % 06/21/2021 3:27 PM [facility] EOSINOPHILS 6 % 06/21/2021 3:27 PM [facility] BASOPHILS 1 % 06/21/2021 3:27 PM [facility] IMMATURE GRANULOCYTES 0 % 06/21/2021 3:27 PM [facility] NEUTROPHIL ABSOLUTE 5.44 1.90 - 7.00 K/uL 06/21/2021 3:27 PM [facility] LYMPHOCYTE ABSOLUTE 2.34 0.70 - 4.50 K/uL 06/21/2021 3:27 PM [facility] MONOCYTE ABSOLUTE 0.57 0.10 - 1.30 K/uL 06/21/2021 3:27 PM [facility] EOSINOPHIL ABSOLUTE 0.53 0.00 - 0.70 K/uL 06/21/2021 3:27 PM [facility] BASOPHILS ABSOLUTE 0.08 0.00 - 0.20 K/uL 06/21/2021 3:27 PM [facility] IMMATURE GRANULOCYTES ABSOLUTE 0.03 0.00 - 0.03 K/uL 06/21/2021 3:27 PM [facility] Blood 06/21/2021 12:0 0 PM ASSOCIATE SOFTWARE APPLICATION ENGINEER 06/21/2021 2:59 PM ASSOCIATE SOFTWARE APPLICATION ENGINEER us External Provider [facility] HEMATOLOGY ORDERABLES Fi nal Result [facility] CLIA# [id number] [address] [place] [address] * (ABNORMAL) LIPID PANEL (06/21/2021 12:00 PM ASSOCIATE SOFTWARE APPLICATION ENGINEER) CHOLESTEROL 216(H) <200 mg/dL 06/21/2021 3:39 PM ASSOCIATE SOFTWARE APPLICATION ENGINEER [facility] TRIGLYCERIDE 77 <150 mg/dL 06/21/2021 3:39 PM [facility] HDL 46 40 - 59 mg/dL 06/21/2021 3:39 PM [facility] LDL CALCULATED 155(H) <100 mg/dL 06/21/2021 3:39 PM [facility] [employer] [facility] NON-HDL CHOLESTEROL 170(H) <130 mg/dL 06/21/2021 3:39 PM [facility] [employer] [facility] Blood 06/21/2021 12:0 0 PM ASSOCIATE SOFTWARE APPLICATION ENGINEER 06/21/2021 2:59 PM ASSOCIATE SOFTWARE APPLICATION ENGINEER Critical access hospital [employer] [facility] - 06/21/2021 3:39 PM ASSOCIATE SOFTWARE APPLICATION ENGINEER TOTAL CHOLESTEROL mg/dL Desirable <200 Borderline high 200-239 High >=240 TRIGLYCERIDES mg/dL Normal <150 Borderline high 150-199 High 200-499 Very high >=500 HDL CHOLESTEROL mg/dL Low <40 Normal 40-59 Desirable >=60 NON HDL CHOLESTEROL mg/dL Optimal <130 Near Optimal 130-159 Borderline High 160-189 Very High >=190 CALCULATED LDL mg/dL LDL <70, OPTIMAL if have Atherosclerotic cardiovascular disease (ASCVD) or intermediate or higher (>7.5%) 10 year risk of ASCVD including most adults with diabetes. LDL <100, Optimal in adult patients with low (<7.5%) 10 year ASCVD risk LDL 100-160, Suboptimal LDL >160, High LDL >190, Very high ATPIII Guidelines Reference Ranges for Lipid Panels (NCEP/AMA) . us External Provider [facility] CHEMISTRY ORDERABLES Fin al Result [facility] [employer] [facility] CLIA# [id number] [address] [place] [place] [id number] * (ABNORMAL) COMPREHENSIVE METABOLIC PANEL (06/21/2021 12:00 PM ASSOCIATE SOFTWARE APPLICATION ENGINEER) SODIUM 137 136 - 145 mmol/L 06/21/2021 3:39 PM [facility] [employer] [facility] POTASSIUM 4.3 3.5 - 5.0 mmol/L 06/21/2021 3:39 PM [facility] CHLORIDE 103 98 - 107 mmol/L 06/21/2021 3:39 PM [facility] CO2 24 22 - 29 mmol/L 06/21/2021 3:39 PM [facility] CALCIUM 9.6 8.6 - 10.2 mg/dL 06/21/2021 3:39 PM [facility] BUN 10 6 - 20 mg/dL 06/21/2021 3:39 PM [facility] - . [facility] CREATININE 0.85 0.51 - 0.95 mg/dL 06/21/2021 3:39 PM [facility] GLUCOSE 106(H) 74 - 99 mg/dL 06/21/2021 3:39 PM [facility] - . [facility] TOTAL PROTEIN 8.0 6.7 - 8.6 g/dL 06/21/2021 3:39 PM [facility] ALBUMIN 4.2 3.5 - 5.2 g/dL 06/21/2021 3:39 PM [facility] BILIRUBIN TOTAL 0.3 0.3 - 1.2 mg/dL 06/21/2021 3:39 PM [facility] - . [facility] ALKALINE PHOSPHATASE 106(H) 35 - 104 U/L 06/21/2021 3:39 PM [facility] - . [facility] AST 15 <33 U/L 06/21/2021 3:39 PM [facility] - . [facility] ALT 17 <34 U/L 06/21/2021 3:39 PM [facility] - [facility] GFR >60 >=60 mL/min/1. 73 sq meter 06/21/2021 3:39 PM [facility] Comment: eGFR calculated with 2020 CKD-EPI equation. Vegetarian diet, extremely high or low muscle mass, and may affect results. Cystatin C with Glomerular Filtration Rate is a suitable alternative for these patients. The National Kidney Foundation and the [place] Society of Nephrology (NKF-ASN) recommends using the 2020 CKD Epidemiology Collaboration (CKD-EPI) equation to calculate estimated glomerular filtration rate (eGFR). This equation is only applicable to [place] adult patients and removes race as a variable. Due to the variation of creatinine in different conditions, they recommend use of confirmatory tests such as eGFR from cystatin C or creatinine-cystatin GFR estimating equations, or direct measurement of clearance of an exogenous filtration marker in critical clinical decisions including but not limited to drug dosing, surgery, chemotherapy, and transplant referral. ANION GAP 10 8 - 16 mmol/L 06/21/2021 3:39 PM ASSOCIATE SOFTWARE APPLICATION ENGINEER [facility] Blood 06/21/2021 12:0 0 PM ASSOCIATE SOFTWARE APPLICATION ENGINEER 06/21/2021 2:59 PM ASSOCIATE SOFTWARE APPLICATION ENGINEER Narrative [facility] - 06/21/2021 3:39 PM ASSOCIATE SOFTWARE APPLICATION ENGINEER Samples containing indocyanine green cause interferences on Total and/or Direct Bilirubin and must not be measured. us External Provider [facility] CHEMISTRY ORDERABLES Fin al Result [facility] CLIA# [id number] [address] [place] [address] documented in this encounter Visit Diagnoses Not on filedocumented in this encounter
[2024-09-21 16:23] VITALS: BP 149/95; PULSE 85; RESP 18; TEMP 36.3; O2SAT 98
[2024-09-21 17:13] LABS: Basophils Absolute Auto 0.1 K/mm3 (0.0-0.1); Basophils Percent Auto 0.7 % (0.2-1.2); Eosinophils Absolute Auto 0.5 K/mm3 (0-0.3); Eosinophils Percent Auto 6.1 % (0-4.4); Hematocrit 43.1 % (37.0-47.0); Hemoglobin 13.5 g/dL (12.0-15.0); Immature Granulocyte Absolute 0.02 K/mm3 (0.00-0.031); Immature Granulocyte Percent A 0.2 % (0-0.5); Lymphocytes Percent Auto 34.5 % (18.3-44.2); Mean Corpuscular HGB Conc 31.3 g/dl (32-36); Mean Corpuscular Hemoglobin 26.4 pg (26-34); Mean Corpuscular Volume 84.3 fl (80-100); Mean Platelet Volume 10.4 fl (7.4-10.4); Monocytes Absolute Auto 0.6 K/mm3 (0.1-0.6); Neutrophils Absolute Auto 4.3 K/mm3 (1.3-6.7); Neutrophils Percent Auto 51.5 % (45.5-73.1); Platelet Count Result 241 k/mm3 (150-375); Red Blood Count 5.11 M/mm3 (4.2-5.4); Red Cell Distribution Width 13.9 % (11.5-14.5); White Blood Count 8.4 K/mm3 (4.5-10.0)
[2024-09-21 17:26] LABS: Alanine Aminotransferase 24 U/L (6-35); Albumin Level 4.3 g/dL (3.5-5.1); Alkaline Phosphatase 95 U/L (38-126); Anion Gap 7 mmol/L (4-12); Aspartate Amino Transferase 23 U/L (14-36); Bilirubin,Total 0.4 mg/dL (0.2-1.3); Blood Urea Nitrogen 18 mg/dL (7-17); Calcium 8.9 mg/dL (8.4-10.2); Carbon Dioxide 26 mmol/L (22-30); Chloride 106 mmol/L (98-107); Estimated CRCL calculation 166 ml/min; Estimated Glomerular Filt Rate > 60; Glucose 96 mg/dL (65-110); Lipase 81 U/L (23-300); Potassium 4.1 mmol/L (3.4-5.0); Sodium 139 mmol/L (137-145)
[2024-09-21 17:37] LABS: Troponin I < 0.012 ng/mL (0.000-0.034)
--- OUTSIDE RECORDS SUMMARY | 2024-09-21 20:05 | XMS_ITS | Clinical Summary ---
Author Organization [facility] [employer] Address [address] [place] [address] Care Team Providers Care Public Interviewer Name Role Phone Sahara Bragg MD Primary Care Provider [phone] Source Comments [facility] and Associated Physician Practices is amultiple site organization consisting of ambulatory clinics and hospital sitesin [place], [place], [place] and [place]. This disclosure is being madepursuant to the Care Everywhere program and may not contain all information available regarding this patient. Last updated 18.[facility] [employer] Allergies Active Allergy Reactions Criticality Noted Date [...] fluticasone propionate (Flonase) 50 MCG/ACT nasal spray [place] 2 (two) sprays into each nostril once [...] (01/19/2022): Added automatically from request for surgery [id number] Enlarged tonsils 08/08/2012 Snoring 03/26/2012 Hay fever [...] Industry Job Start Date Job End Date 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 Not on file Last Filed Vital Signs Vital Sign Reading Time Taken Comments Blood Pressure 124/90 06/22/2023 11:31 AM [employer] [facility] Pulse 91 06/22/2023 11:31 AM [employer] Temperature 36.7 C (98 F) 06/22/2023 11:31 AM [facility] Respiratory Rate 17 05/14/2023 2:05 PM [employer] [facility] Oxygen Saturation 99% 06/22/2023 11:31 AM [facility] Inhaled Oxygen Concentration - - Weight 191.4 kg (422 lb) 06/22/2023 11:44 AM [facility] Height 167.6 cm (5' 6 ) 06/22/2023 11:44 AM [facility] Body Mass Index 68.11 06/22/2023 11:44 AM [facility] Plan of Treatment Health Maintenance Due Date [...] RFLX HPV ASCU Routine 07/18/2022 4:10 PM [employer] [facility] Well woman exam from Last 3 Months or Most Recently Relevant to Health Maintenance Results * PAP IG LB CT+NG+TV RFLX HPV ASCU (07/18/2022 4:10 PM [facility]) Diagnosis [facility] ACCOUNT BILL Comment:NEGATIVE FOR INTRAEP ITHELIAL LESION OR MALIGNANCY. Specimen Adequacy [facility] ACCOUNT BILL Comment: Satisfactory for evaluation. Endocervical and/or squamous metaplastic cells (endocervical component) are present. Clinician Provided ICD10 [facility] ACCOUNT BILL Comment: Z01.419 Z68.44 N92.1 Performed by [facility] ACCOUNT BILL Comment:Arik Grace, Human Capital Analyst (ASCP) Comment . [facility] ACCOUNT BILL Note [...] UTERINE CERVIX / Unknown 07/18/2022 4:10 PM [facility] 07/19/2022 Narrative [facility] ACCOUNT BILL - 07/24/2022 9:08 AM [facility] No. of containers..01 ThinPrep Vial Resulting Agency Comment Lab Testing performed at: [employer] [place] [id number] Jacquelyn Orozco DO LAB - PATHOLOGY/CYTOLOGY ORDERAB LES Final Result [facility] ACCOUNT BILL [id number] [place] [address] from Last 3 Months or Most Recently Relevant to Health Maintenance [facility] Care Teams Public Interviewer Relationship Specialty Start Date End Date Sahara Bragg MD [address] [place] [address] PCP - General Family Medicine 10/30/22
--- OUTSIDE RECORDS SUMMARY | 2024-09-21 20:05 | XMS_ITS | Encounter Summary ---
Author Organization [employer] Address [address] [place] [address] Care Team Providers Care White Washer Piler Name Role Phone Unavailable Primary Care Provider Unavailabl e Encounter Details Date Type Department Care Team (Late st Contact Info) Description 06/21/2021 Lab Requisition [facility] General Laboratory Services [address] [address] [facility], External Provider [address] [address] Social History Tobacco Use Types Packs/Day Years Used Date Smoking Tobacco: Never Assessed Comments Unknown Sex and Gender Information Value Date Recorded Sex Assigned at Not on file Legal Sex Female 2:52 PM BALL SORTER Gender Identity Not on file Sexual Orientation Not on file documented as of this encounter Plan of Treatment Not on file documented as of this encounter Procedures Procedure Name Priority Date/Time Associated Diagnosis Comments CBC WITH DIFFERENTIAL Routine 06/21/2021 12:00 PM BALL SORTER VITAMIN D 25 HYDROXY Routine 06/21/2021 12:00 PM [facility] SORTER TSH Routine 06/21/2021 12:00 PM [facility] HEMOGLOBIN A1C Routine 06/21/2021 12:00 PM [facility] S[facility]TER LIPID PANEL Routine 06/21/2021 12:00 PM [facility]TER COMPREHENSIVE METABOLIC PANEL Routine 06/21/2021 12:00 PM BALL SORTER documented in this encounter Results * (ABNORMAL) VITAMIN D 25 HYDROXY (06/21/2021 12:00 PM BALL SORTER) VITAMIN D TOTAL (25OH) 9(L) 30 - 100 ng/mL 06/21/2021 3:54 PM BALL SORTER [facility] [employer] [facility] Blood 06/21/2021 12:0 0 PM BALL SORTER 06/21/2021 2:59 PM BALL SORTER Narrative [facility] - 06/21/2021 3:54 PM BALL SORTER Interpretive Data Chart: Deficient: 0 - 20 ng/mL Insufficient: 21 - 29 ng/mL Sufficient: 30 - 100 ng/mL Increased Risk of Hypercalciuria: >100 ng/ml Toxic: >150 ng/ml External Provider [facility] CHEMISTRY ORDERABLES Fin al Result Performing Organization Address City/[facility]/ZIP Co de Phone Number [facility] CLIA# [id number] [address] [place] [address] * TSH (06/21/2021 12:00 PM BALL SORTER) TSH 2.46 0.27 - 4.20 uIU/mL 06/21/2021 3:45 PM [facility] [employer] [facility] Blood 06/21/2021 12:0 0 PM BALL SORTER 06/21/2021 2:59 PM BALL SORTER External Provider [facility] CHEMISTRY ORDERABLES Fin al Result Performing Organization Address [facility] Co de Phone Number [id number] [address] [place] [address] * (ABNORMAL) HEMOGLOBIN A1C (06/21/2021 12:00 PM BALL SORTER) HEMOGLOBIN A1C 5.9(H) <5.7 % 06/21/2021 4:01 PM BALL SORTER [facility] [employer] [facility] EST. AVG GLUCOSE, A1C 123 mg/dL 06/21/2021 4:01 PM BALL SORTER [facility] [employer] [facility] Blood 06/21/2021 12:0 0 PM BALL SORTER 06/21/2021 2:59 PM BALL SORTER Narrative [facility] [employer] [facility] - 06/21/2021 4:01 PM BALL SORTER HGB A1C INTERPRETATION NORMAL: <5.7% PRE-DIABETES: 5.7 - 6.4% DIABETES: 6.5% OR GREATER External Provider [facility] CHEMISTRY ORDERABLES Fin al Result [employer] [facility]ORATORY SERVICES - [facility] CLIA# [id number] [address] [place] [address] * (ABNORMAL) CBC WITH DIFFERENTIAL (06/21/2021 12:00 PM BALL SORTER) [facility] WBC 9.0 4.0 - 9.8 K/uL 06/21/2021 3:27 PM B[facility] S[facility]TER [employer] [facility] - [facility] RBC 5.42(H) 3.90 - 4.90 M/uL 06/21/2021 3:27 PM B[facility] S[facility]TER [employer] [facility] - [facility] HEMOGLOBIN 14.0 11.8 - 14.8 g/dL 06/21/2021 3:27 PM BALL SORTER [employer] [facility] - [facility] HEMATOCRIT 45.0(H) 35.5 - 44.0 % 06/21/2021 3:27 PM BALL SORTER [employer] [facility] - [facility] MCV 83.0 82.0 - 99.0 fL 06/21/2021 3:27 PM B[facility] S[facility]TER [employer] [facility] - [facility] MCH 25.8(L) 27.2 - 32.6 pg 06/21/2021 3:27 PM B[facility] S[facility]TER [employer] [facility] - [facility] MCHC 31.1(L) 31.5 - 35.5 g/dL 06/21/2021 3:27 PM BALL SORTER [employer] [facility] - [facility] RDW 14.4 11.5 - 14.5 % 06/21/2021 3:27 PM B[facility] S[facility]TER [employer] [facility] - [facility] RDW-STDEV 43.6 37.1 - 48.7 fL 06/21/2021 3:27 PM B[facility] SORTER [employer] [facility] - [facility] PLATELETS 262 140 - 350 K/uL 06/21/2021 3:27 PM BALL SORTER [employer] [facility] - [facility] MPV 10.8 9.3 - 12.4 fL 06/21/2021 3:27 PM BALL SORTER [employer] [facility] - [facility] NEUTROPHILS 61 % 06/21/2021 3:27 PM [facility] LABORATORY SERVICES - [facility] LYMPHOCYTES 26 % 06/21/2021 3:27 PM [facility] LAB[facility]ATORY SERVICES - [facility] MONOCYTES 6 % 06/21/2021 3:27 PM [facility] LABORATORY SERVICES - [facility] EOSINOPHILS 6 % 06/21/2021 3:27 PM [facility] LABORATORY SERVICES - [facility] BASOPHILS 1 % 06/21/2021 3:27 PM [facility] LABORATORY SERVICES - [facility] IMMATURE GRANULOCYTES 0 % 06/21/2021 3:27 PM [facility] LABORATORY SERVICES - [facility] NEUTROPHIL ABSOLUTE 5.44 1.90 - 7.00 K/uL 06/21/2021 3:27 PM [facility] LABORATORY SERVICES - [facility] LYMPHOCYTE ABSOLUTE 2.34 0.70 - 4.50 K/uL 06/21/2021 3:27 PM [facility] LABORATORY SERVICES - [facility] MONOCYTE ABSOLUTE 0.57 0.10 - 1.30 K/uL 06/21/2021 3:27 PM [facility] LABORATORY SERVICES - [facility] EOSINOPHIL ABSOLUTE 0.53 0.00 - 0.70 K/uL 06/21/2021 3:27 PM [facility] LABORATORY SERVICES - [facility] BASOPHILS ABSOLUTE 0.08 0.00 - 0.20 K/uL 06/21/2021 3:27 PM [facility] LABORATORY SERVICES - [facility] IMMATURE GRANULOCYTES ABSOLUTE 0.03 0.00 - 0.03 K/uL 06/21/2021 3:27 PM [facility] LABORATORY SERVICES - [facility] Blood 06/21/2021 12:0 0 PM BALL SORTER 06/21/2021 2:59 PM BALL SORTER us External Provider [facility] HEMATOLOGY ORDERABLES Fi nal Result [facility] LABORATORY SERVICES - [facility] CLIA# [id number] [address] [place] [address] * (ABNORMAL) LIPID PANEL (06/21/2021 12:00 PM BALL SORTER) CHOLESTEROL 216(H) <200 mg/dL 06/21/2021 3:39 PM BALL SORTER [facility] LABORATORY [facility] TRIGLYCERIDE 77 <150 mg/dL 06/21/2021 3:39 PM [facility] HDL 46 40 - 59 mg/dL 06/21/2021 3:39 PM [facility] LDL CALCULATED 155(H) <100 mg/dL 06/21/2021 3:39 PM [facility] [employer] [facility] NON-HDL CHOLESTEROL 170(H) <130 mg/dL 06/21/2021 3:39 PM [facility] [employer] [facility] Blood 06/21/2021 12:0 0 PM BALL SORTER 06/21/2021 2:59 PM BALL SORTER [facility] [employer] [facility] - 06/21/2021 3:39 PM BALL SORTER TOTAL CHOLESTEROL mg/dL Desirable <200 Borderline high [...] Lipid Panels (NCEP/AMA) . us External Provider [facility] CHEMISTRY ORDERABLES Fin al Result [facility] [employer] [facility] CLIA# [id number] [address] [place] [address] * (ABNORMAL) COMPREHENSIVE METABOLIC PANEL (06/21/2021 12:00 PM BALL SORTER) SODIUM 137 136 - 145 mmol/L 06/21/2021 3:39 PM [facility] [employer] [facility] POTASSIUM 4.3 3.5 - 5.0 mmol/L 06/21/2021 3:39 PM [facility] [employer] LABORATORY SERVICES - [facility] CHLORIDE 103 98 - 107 mmol/L 06/21/2021 3:39 PM [facility] [employer] [facility]ATORY [facility] - [facility] CO2 24 22 - 29 mmol/L 06/21/2021 3:39 PM [facility] . [facility] CALCIUM 9.6 8.6 - 10.2 mg/dL 06/21/2021 3:39 PM [facility] LABORATORY SERVICES - [facility] BUN 10 6 - 20 mg/dL 06/21/2021 3:39 PM [facility] - . [facility] CREATININE 0.85 0.51 - 0.95 mg/dL 06/21/2021 3:39 PM [facility] [employer] LABORATORY SERVICES - . [facility] GLUCOSE 106(H) 74 - 99 mg/dL 06/21/2021 3:39 PM [facility] [employer] LABORATORY SERVICES - . [facility] TOTAL PROTEIN 8.0 6.7 - 8.6 g/dL 06/21/2021 3:39 PM [facility] [employer] LAB[facility]ATORY SERVICES - [facility] ALBUMIN 4.2 3.5 - 5.2 g/dL 06/21/2021 3:39 PM [facility] [employer] [facility]ORY SERVICES - [facility] BILIRUBIN TOTAL 0.3 0.3 - 1.2 mg/dL 06/21/2021 3:39 PM [facility] [employer] LABORATORY [facility] - . [facility] ALKALINE PHOSPHATASE 106(H) 35 - 104 U/L 06/21/2021 3:39 PM [facility] [employer] LABORATORY SERVICES - . [facility] AST 15 <33 U/L 06/21/2021 3:39 PM [facility] [employer] LABORATORY SERVICES - . [facility] ALT 17 <34 U/L 06/21/2021 3:39 PM [facility] [employer] LABORATORY SERVICES - . [facility] GFR >60 >=60 mL/min/1. 73 sq meter 06/21/2021 3:39 PM [facility] [employer] LABORATORY SERVICES - . [facility] Comment: eGFR calculated with 2020 CKD-EPI equation. Vegetarian diet, extremely high or low muscle mass, and may affect results. Cystatin C with Glomerular Filtration Rate is a suitable alternative for these patients. The National Kidney [employer] and the [place] [employer]ph[employer] (NKF-ASN) recommends using the [...] 8 - 16 mmol/L 06/21/2021 3:39 PM BALL SORTER [facility] Blood 06/21/2021 12:0 0 PM BALL SORTER 06/21/2021 2:59 PM B[facility] SORTER Narrative [facility] - 06/21/2021 3:39 PM B[facility] S[employer]TER Samples containing indocyanine green cause interferences on Total and/or Direct Bilirubin and must not be measured. us External Provider [facility] CHEMISTRY ORDERABLES Fin al Result [facility] CLIA# [id number] [address] [place] [address] documented in this encounter Visit Diagnoses Not on filedocumented in this encounter
--- OUTSIDE RECORDS SUMMARY | 2024-09-21 20:05 | XMS_ITS | Clinical Summary ---
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
--- NOTE | 2024-09-21 20:42 | ED_ITS ---
HPI - Chest Pain General Chief Complaint: Chest Pain Stated Complaint: CP Time Seen by Provider: 09/21/24 19:55 History of Present Illness HPI narrative: Patient is a 28-year-old female who presents to the ER with complaints of chest pain that started around 1245pm yesterday. She endorses midsternal pain that is intermittent and is not relieved by Tums or Pepto- Bismol. Patient denies any shortness of breath, wheezing, urinary symptoms, or recent fevers. She endorses a history of asthma but denies any other pertinent medical history relevant to this ER visit. Patient reports she has had a mild cough for the past week but believes this is due to seasonal allergies. Related Data Home Medications ?Medication ?Instructions ?Recorded ?Confirmed ?Last Taken ?Type albuterol sulfate 90 mcg/actuation inhalation 09/13/24 Unknown History aerosol inhaler fluticasone furoate 100 inhalation 09/13/24 Unknown History mcg-vilanterol 25 mcg/dose inhalation powder (Breo Ellipta) Allergies Allergy/AdvReac Type Severity Reaction Status Date / Time pseudoephedrine (From Allergy Unknown Unknown Verified 09/13/24 12:30 Sudafed) Review of Systems 2 Review of Systems: All systems reviewed & are unremarkable except as noted in HPI and below Exam 2 Narrative: GENERAL: Well appearing, obese, non-toxic, in no acute distress. HEAD: Normocephalic, atraumatic. NECK: Supple. No adenopathy, no masses. RESPIRATORY: Airway patent, respirations nonlabored. Clear to auscultation bilaterally, no rales, rhonchi, wheezing. CARDIOVASCULAR: Regular rate and rhythm without murmurs, rubs, or gallops. Peripheral pulses 2+ and equal bilaterally. ABDOMINAL: Soft, nontender, nondistended, no hepatosplenomegaly. Normoactive BS. MUSCULOSKELETAL: Moves all extremities. Strength/ROM intact without gross deformities. SKIN: Warm, dry, normal color. No rashes. NEURO: A&O X3. Speech clear. Cranial nerves II-XII intact. No ataxic movements. PSYCHIATRIC: Appropriate mood and affect. Normal interaction. Course Vital Signs Vital signs: Vital Signs Temperature 36.3 C L 09/21/24 16:23 Pulse Rate 85 09/21/24 16:23 Respiratory Rate 18 09/21/24 16:23 Blood Pressure 149/95 H 09/21/24 16:23 Pulse Oximetry 98 09/21/24 16:23 Oxygen Delivery Room Air 09/21/24 16:23 Temperature 36.3 C L 09/21/24 16:23 Pulse Rate 85 09/21/24 16:23 Respiratory Rate 18 09/21/24 16:23 Blood Pressure 149/95 H 09/21/24 16:23 Pulse Oximetry 98 09/21/24 16:23 Oxygen Delivery Room Air 09/21/24 16:23 MDM - Chest Pain MDM Narrative Medical decision making narrative: Patient is a 28-year-old female who presents to the ER with complaints of chest pain that started around 1245pm yesterday. She endorses midsternal pain that is intermittent and is not relieved by Tums or Pepto- Bismol. Patient denies any shortness of breath, wheezing, urinary symptoms, or recent fevers. She endorses a history of asthma but denies any other pertinent medical history relevant to this ER visit. Patient reports she has had a mild cough for the past week but believes this is due to seasonal allergies. Labs Ordered: CBC, CMP, proBNP, D-dimer, TSH, UA, lipase, troponin Imaging Ordered: Chest x-ray Medications Ordered: L normal saline IV bolus, Toradol 15 mg IV Results: Patient's chest x-ray indicates No acute cardiopulmonary pathology. Diagnosis: Atypical chest pain, gastric reflux Risks: HEART score: low risk HEART Score for Major Cardiac Events from [email or web address] on 09/21/2024 All calculations should be rechecked by clinician prior to use RESULT SUMMARY: 2 points Low Score (0-3 points) Risk of MACE of 0.9-1.7%. INPUTS: History ?> 0 = Slightly suspicious EKG ?> 1 = Non-specific repolarization disturbance Age ?> 0 = <45 Risk factors ?> 1 = 1-2 risk factors Initial troponin ?> 0 = <=Normal limit Consults: None necessary Patient Education/Shared MDM: Results of imaging and labwork shared with patient. She endorses improvement following medication administration. Patient strongly advised to maintain hydration status upon discharge and follow-up with her PCP as soon as possible. She will be discharged home with a prescription for Prilosec and Pepcid. Strict return precautions provided. Patient verbalized understanding and is in agreement with plan. Vital signs stable at time of discharge. All questions answered. Differential Diagnosis Differential diagnosis: Likely atypical chest pain, st elevation myocardial infarction, costochondritis, chest pain and other (GERD) Lab Data Attestation: I reviewed the patient's lab results. 09/21/24 17:06 09/21/24 17:06 Labs: Lab Results 09/21/24 09/21/24 09/21/24 Range/Units 17:06 20:50 22:10 WBC 8.4 (4.5-10.0) K/mm3 RBC 5.11 (4.2-5.4) M/mm3 Hgb 13.5 (12.0-15.0) g/dL Hct 43.1 (37.0-47.0) % MCV 84.3 (80-100) fl MCH 26.4 (26-34) pg MCHC 31.3 L (32-36) g/dl RDW 13.9 (11.5-14.5) % Plt Count 241 (150-375) k/mm3 MPV 10.4 (7.4-10.4) fl Immature Gran % (Auto) 0.2 (0-0.5) % Neut % (Auto) 51.5 (45.5-73.1) % Lymph % (Auto) 34.5 (18.3-44.2) % [place] % (Auto) 7.0 (2.6-8.5) % Eos % (Auto) 6.1 H (0-4.4) % Baso % (Auto) 0.7 (0.2-1.2) % Lymph # (Auto) 2.90 (0.9-3.2) K/mm3 [place] # (Auto) 0.6 (0.1-0.6) K/mm3 Eos # (Auto) 0.5 H (0-0.3) K/mm3 Baso # (Auto) 0.1 (0.0-0.1) K/mm3 Abs Immat Gran (auto) 0.02 (0.00-0.031) K/mm3 Absolute Neuts (auto) 4.3 (1.3-6.7) K/mm3 Absolute Nucleated RBC 0.000 (0.0-0.012) K/mm3 Nucleated RBC % 0.0 (0.0-0.2) % PT 13.4 (11.1-14.7) Seconds INR 1.0 APTT 21.3 L (22.3-36.8) Seconds D-Dimer 0.28 (<0.48) ug/mL Sodium 139 (137-145) mmol/L Potassium 4.1 (3.4-5.0) mmol/L Chloride 106 (98-107) mmol/L Carbon Dioxide 26 (22-30) mmol/L Anion Gap 7 (4-12) mmol/L BUN 18 H (7-17) mg/dL Creatinine 0.80 (0.7-1.0) mg/dL Estim Creat Clear Calc 166 ml/min Estimated GFR > 60 (59 - ) Glucose 96 (65-110) mg/dL Calcium 8.9 (8.4-10.2) mg/dL Total Bilirubin 0.4 (0.2-1.3) mg/dL AST 23 (14-36) U/L ALT 24 (6-35) U/L Alkaline Phosphatase 95 (38-126) U/L Troponin I < 0.012 < 0.012 (0.000-0.034) ng/mL NT-Pro-B Natriuret Pep < 20 (19.9-100) pg/mL Total Protein 8.0 (6.3-8.2) g/dL Albumin 4.3 (3.5-5.1) g/dL Lipase 81 (23-300) U/L TSH (Reflex) 1.230 (0.465-4.68) uIU/mL Urine Color (Yellow) Urine Appearance (Clear) Urine pH (5.0-9.0) Ur Specific [employer] (1.001-1.035) Urine Protein (Negative) mg/dL Urine Glucose (UA) (Negative) mg/dL Urine Ketones (Negative) mg/dL Ur Blood (Man) (Negative) Urine Nitrate (Negative) Urine Bilirubin (Negative) Urine Urobilinogen (<2.0) mg/dL Leukocyte Esterase Rfl (Negative) HARRY/UL Urine RBC (0-2) /hpf Urine WBC (0-3) /hpf Ur Squamous Epith Cells (Few) /hpf Urine Bacteria /hpf Urine Casts POC Urine HCG, Qual Negative (Negative) 09/21/24 Range/Units 22:29 WBC (4.5-10.0) K/mm3 RBC (4.2-5.4) M/mm3 Hgb (12.0-15.0) g/dL Hct (37.0-47.0) % MCV (80-100) fl MCH (26-34) pg MCHC (32-36) g/dl RDW (11.5-14.5) % Plt Count (150-375) k/mm3 MPV (7.4-10.4) fl Immature Gran % (Auto) (0-0.5) % Neut % (Auto) (45.5-73.1) % Lymph % (Auto) (18.3-44.2) % [place] % (Auto) (2.6-8.5) % Eos % (Auto) (0-4.4) % Baso % (Auto) (0.2-1.2) % Lymph # (Auto) (0.9-3.2) K/mm3 [place] # (Auto) (0.1-0.6) K/mm3 Eos # (Auto) (0-0.3) K/mm3 Baso # (Auto) (0.0-0.1) K/mm3 Abs Immat Gran (auto) (0.00-0.031) K/mm3 Absolute Neuts (auto) (1.3-6.7) K/mm3 Absolute Nucleated RBC (0.0-0.012) K/mm3 Nucleated RBC % (0.0-0.2) % PT (11.1-14.7) Seconds INR APTT (22.3-36.8) Seconds D-Dimer (<0.48) ug/mL Sodium (137-145) mmol/L Potassium (3.4-5.0) mmol/L Chloride (98-107) mmol/L Carbon Dioxide (22-30) mmol/L Anion Gap (4-12) mmol/L BUN (7-17) mg/dL Creatinine (0.7-1.0) mg/dL Estim Creat Clear Calc ml/min Estimated GFR (59 - ) Glucose (65-110) mg/dL Calcium (8.4-10.2) mg/dL Total Bilirubin (0.2-1.3) mg/dL AST (14-36) U/L ALT (6-35) U/L Alkaline Phosphatase (38-126) U/L Troponin I (0.000-0.034) ng/mL NT-Pro-B Natriuret Pep (19.9-100) pg/mL Total Protein (6.3-8.2) g/dL Albumin (3.5-5.1) g/dL Lipase (23-300) U/L TSH (Reflex) (0.465-4.68) uIU/mL Urine Color Yellow (Yellow) Urine Appearance Clear (Clear) Urine pH 5.5 (5.0-9.0) Ur Specific [employer] 1.034 (1.001-1.035) Urine Protein Trace (Negative) mg/dL Urine Glucose (UA) Negative (Negative) mg/dL Urine Ketones Trace H (Negative) mg/dL Ur Blood (Man) Negative (Negative) Urine Nitrate Negative (Negative) Urine Bilirubin Negative (Negative) Urine Urobilinogen 1.0 (<2.0) mg/dL Leukocyte Esterase Rfl Negative (Negative) HARRY/UL Urine RBC 0-2 (0-2) /hpf Urine WBC 0-5 (0-3) /hpf Ur Squamous Epith Cells Few (Few) /hpf Urine Bacteria Rare /hpf Urine Casts 0-2 POC Urine HCG, Qual (Negative) Imaging Data Attestation: I personally reviewed and interpreted this imaging study as follows: Radiologist's impression: Impressions Chest X-Ray 09/21/24 17:39 IMPRESSION: No acute cardiopulmonary pathology. Discharge Plan Discharge Clinical Impression: Atypical chest pain, Gastric reflux Patient Disposition: Home Condition: Stable Instructions: Antibiotic Form, Diet for Stomach Ulcers and Gastritis (ED), GERD (Gastroesophageal Reflux Disease) (ED) Additional Instructions: Please return to the ER with any worsening symptoms. Follow-up with primary care provider as soon as possible. Take all medications as prescribed, including regularly scheduled medications. Patient Language: Luxembourgish Prescriptions: New pantoprazole [Protonix] 20 mg tablet,delayed release (DR/EC) 20 mg PO HS 28 Days Qty: 28 0RF famotidine [Pepcid] 40 mg tablet 40 mg PO DAILY Qty: 30 0RF No Action albuterol sulfate 90 mcg/actuation HFA aerosol inhaler INHALATION fluticasone furoate-vilanterol [Breo Ellipta] 100-25 mcg/dose blister with device INHALATION ondansetron 8 mg tablet,disintegrating 8 mg PO Q4-6H PRN (Reason: nausea and vomiting) Qty: 20 0RF Follow-up/Referrals: Reece,Laurie Ely DO [Primary Care Provider] -
[2024-09-21] MEDS: SODIUM CHLORIDE 0.9% IV 1,000 ML 999 ML IV CONT (21:05)
[2024-09-21 21:10] LABS: Partial Thromboplastin Time 21.3 Seconds (22.3-36.8); Prothrombin Time 13.4 Seconds (11.1-14.7)
[2024-09-21 21:38] LABS: D Dimer 0.28 ug/mL (<0.48)
[2024-09-21 21:40] LABS: NT Pro B Type Natriuretic Pept < 20 pg/mL (19.9-100)
[2024-09-21 21:49] LABS: Troponin I < 0.012 ng/mL (0.000-0.034)
[2024-09-21] MEDS: KETOROLAC 15 MG/ML VIAL (*BKC) IV PUSH (22:28)
[2024-09-21 22:38] LABS: Add Urine Microscopic? YES; Appearance Urine Clear (Clear); Bacteria Urine Rare /hpf; Bilirubin Urine Negative (Negative); Blood Urine Negative (Negative); Color Urine Yellow (Yellow); Glucose Urine UA Negative (Negative); Ketones Urine Trace mg/dL (Negative); Leukocyte Esterase Ur Negative LEU/UL (Negative); Nitrate Urine Negative (Negative); Non Pathogenic Casts 0-2; Protein Urine Trace mg/dL (Negative); RBC Urine 0-2 /hpf (0-2); Specific Grav Ur 1.034 (1.001-1.035); Squamous Epithelial Cell Urine Few /hpf (Few); WBC Urine 0-5 /hpf (0-3); pH Urine 5.5 (5.0-9.0)
[2024-09-21 22:39] LABS: BEDSIDEPREGUCG Negative (Negative)
[2024-09-21] MEDS: BELLADONNA ALK/PHENOB ELIX 10 ML, MAG HYDROX/ALUMINUM HYD/SIMETH 30 ML, LIDOCAINE 2% VI... PO (22:59)
[2024-09-21 23:32] VITALS: BP 128/76; PULSE 79; RESP 16; O2SAT 99
== END 2024-09-21 23:41 | disposition home or self-care (01) ==
PROVIDERS: Emergency Medicine; Emergency Provider Registered Nurse; PCP Family Medicine
DX: R07.89 Other chest pain (principal); K21.9 Gastro-esophageal reflux disease without esophagitis; R94.31 Abnormal electrocardiogram [ECG] [EKG]
CPT/HCPCS: 36415; 71046; 80053; 81001; 81025; 83690; 83880; 84443; 84484; 85025; 85380; 85610; 85730; 93005; 96361; 96374; 99284; A9270; J1885; J7030

== ENCOUNTER 2024-11-26 10:22 | Emergency (ER) | payer OTHER, SELFPAY ==
[2024-11-26 10:38] VITALS: BP 172/112; PULSE 86; RESP 16; TEMP 36.4; O2SAT 98
--- NOTE | 2024-11-26 10:41 | ED_ITS ---
HPI - Back Pain/Injury General Chief Complaint: Back Pain/Injury Stated Complaint: R FLANK PAIN Time Seen by Provider: 11/26/24 10:41 Source: patient Mode of arrival: ambulatory Limitations: no limitations History of Present Illness HPI Narrative: 29 yo F presents with c/o R sided mid back pain. 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 Unknown injury. Pain worse with movement. Pain for 1 day. No radiation of pain. No loss of bowel or bladder. Ambulatory with steady gait. Has not taken any OTC meds to treat pain. all systems reviewed and negative except as noted above. Related Data Home Medications ?Medication ?Instructions ?Recorded ?Confirmed ?Last Taken ?Type albuterol sulfate 90 mcg/actuation 2 puff inhalation Q8H PRN 09/13/24 11/26/24 Unknown History aerosol inhaler shortness of breath or wheezing fluticasone furoate 100 1 inh inhalation Q24H 09/13/24 11/26/24 Unknown History mcg-vilanterol 25 mcg/dose inhalation powder (Breo Ellipta) bupropion HCl 150 mg 24 hr tablet, 150 mg PO DAILY 11/26/24 11/26/24 Unknown History extended release (Wellbutrin XL) fexofenadine 180 mg tablet 180 mg PO DAILY 11/26/24 11/26/24 Unknown History (Anjelica Allergy) fluticasone furoate 27.5 2 spray intranasal DAILY 11/26/24 11/26/24 Unknown History mcg/actuation nasal spray,suspension (Flonase Sensimist) montelukast 10 mg tablet 10 mg PO DAILY 11/26/24 11/26/24 Unknown History (Singulair) Allergies Allergy/AdvReac Type Severity Reaction Status Date / Time pseudoephedrine (From Allergy Unknown Unknown Verified 11/26/24 10:33 Sudafed) Review of Systems Review of Systems: CONSTITUTIONAL: Denies fever, chills, or sweats. EYES: Denies visual changes, redness, or discharge. ENT: Denies rhinorrhea, congestion, sore throat, or otalgia. CARDIOVASCULAR: Denies chest pain, palpitations, or edema. RESPIRATORY: Denies cough or dyspnea. GASTROINTESTINAL: Denies abdominal pain, nausea, vomiting, or diarrhea. GENITOURINARY: Denies dysuria or hematuria. SKIN: Denies rash or itching. MUSCULOSKELETAL: Reports right-sided mid back pain. NEUROLOGIC: Denies headache, numbness, or weakness. PSYCHIATRIC: Denies anxiety or depression. All other systems reviewed are negative, except as documented in HPI. PMFSH Comments At time of signature, agree with nursing past medical, surgical, social and family history. There is no relevant family history pertinent to the presenting complaint. Exam Narrative: GENERAL: This is a well-nourished, well-developed patient, in no apparent distress. HEAD: normocephalic, atraumatic. EYES: PERRL. Sclera clear/white. Vision is grossly intact. EARS: External ears normal NOSE: External nose normal NECK: Neck supple, non-tender without lymphadenopathy, masses or thyromegaly. CARDIOVASCULAR: Regular rate and rhythm without murmurs, gallops, or rubs. RESPIRATORY: Clear to auscultation. Breath sounds equal bilaterally. No wheezes, rales, or rhonchi. SKIN: warm, Dry, intact with no suspicious lesions or rash, good texture and turgor. NEURO: awake, alert, and oriented to person, place and time. There were no obvious focal neurologic abnormalities. EXTREMITIES: No joint tenderness, effusion, or edema noted. BACK: muscular tenderness to R side mid back. normal ROM. LE strength 5/5 bilateral. Negative straight leg raise. Course Course Level of Care: Express Care Visit Vital Signs Vital signs: Vital Signs Temperature 36.4 C L 11/26/24 10:38 Pulse Rate 86 11/26/24 10:38 Respiratory Rate 16 11/26/24 10:38 Blood Pressure 172/112 H 11/26/24 10:38 Pulse Oximetry 98 11/26/24 10:38 Temperature 36.4 C L 11/26/24 10:38 Pulse Rate 86 11/26/24 10:38 Respiratory Rate 16 11/26/24 10:38 Blood Pressure 172/112 H 11/26/24 10:38 Pulse Oximetry 98 11/26/24 10:38 Reviewed MDM - Back Pain/Injury MDM Narrative Medical decision making narrative: urinalysis normal. Will treat patient for muscular back pain. Recommend stretching, rest, ice. Will follow up with primary care physician for any worsening of symptoms. No neuro deficits at time of discharge. Differential Diagnosis Differential diagnosis: Likely lumbar radiculopathy, sciatica, strain of lumbar region, thoracic back pain and other ( Thoracic strain) Lab Data Labs: Lab Results 11/26/24 Range/Units 11:29 POC Urine Color Yellow POC Urine Clarity Clear POC Urine pH 6.0 POC Ur Specif [place] 1.030 POC Urine Protein Negative (Negative) POC Ur Glucose (UA) Negative (Negative) POC Urine Ketones Negative (Negative) POC Urine Blood Negative (Negative) POC Urine Nitrite Negative (Negative) POC Urine Bilirubin Negative (Negative) POC Urine Urobilinogen 0.2 POC U Leukocyte Esteras Negative (Negative) Discharge Plan Discharge Clinical Impression: Strain of muscle and tendon of back wall of thorax, initial encounter Patient Disposition: Home Condition: Stable Instructions: Thoracic Back Strain (ED) Additional Instructions: Take medications as prescribed. Methocarbamol as a muscle relaxant may cause drowsiness. Do not drive while taking this medication. Alternate between ice and heat. Do stretching exercises as tolerated. See your doctor if symptoms are not improving. If you have severe pain, weakness, shortness of breath go to the ER. Patient Language: [place] Island[place] Prescriptions: New methocarbamol 750 mg tablet 750 mg PO Q8H PRN (Reason: muscle pain/spasm) Qty: 30 0RF ibuprofen 600 mg tablet 600 mg PO Q6H PRN (Reason: pain) Qty: 30 0RF methylprednisolone [Medrol ([place])] 4 mg tablets,dose pack See Rx Instructions PO .COMPLEX Qty: 21 0RF Rx Instructions: orally per package directions No Action albuterol sulfate 90 mcg/actuation HFA aerosol inhaler 2 puff INHALATION Q8H PRN (Reason: shortness of breath or wheezing) fluticasone furoate-vilanterol [Breo Ellipta] 100-25 mcg/dose blister with device 1 inh INHALATION Q24H ondansetron 8 mg tablet,disintegrating 8 mg PO Q4-6H PRN (Reason: nausea and vomiting) Qty: 20 0RF fexofenadine [Anjelica Allergy] 180 mg tablet 180 mg PO DAILY Flonase Sensimist 27.5 mcg/actuation spray,suspension 2 spray intranasal DAILY Rx Instructions: into each nostril montelukast [Singulair] 10 mg tablet 10 mg PO DAILY bupropion HCl [Wellbutrin XL] 150 mg tablet extended release 24 hr 150 mg PO DAILY famotidine [Pepcid] 40 mg tablet 40 mg PO DAILY Qty: 30 0RF Follow-up/Referrals: Reece,Laurie [Other] Stand Alone Forms: Work/School Release IP Time of Disposition: 11:35
[2024-11-26 11:37] LABS: EDUAAPPEAR Clear; EDUABILI Negative (Negative); EDUABLOOD Negative (Negative); EDUACOLOR1 Yellow; EDUAGLUCOSE Negative (Negative); EDUAKETONE Negative (Negative); EDUALEUKO Negative (Negative); EDUANITRATE Negative (Negative); EDUAPH 6.0; EDUAPROTEIN Negative (Negative); EDUASPGRAVITY 1.030; EDUAUROBILI 0.2
== END 2024-11-26 11:42 | disposition home or self-care (01) ==
PROVIDERS: Emergency Provider Nurse Practitioner Family
DX: S29.012A Strain of muscle and tendon of back wall of thorax, initial encounter (principal); X58.XXXA Exposure to other specified factors, initial encounter; J45.909 Unspecified asthma, uncomplicated
CPT/HCPCS: 81003; 99213; G0463

== ENCOUNTER 2025-02-04 18:29 | Emergency (ER) | payer OTHER, SELFPAY ==
[2025-02-04 18:38] VITALS: BP 142/92; PULSE 89; RESP 16; TEMP 36.4; O2SAT 99
--- NOTE | 2025-02-04 18:40 | ED.URI ---
HPI - URI/Sore Throat General Chief Complaint: Upper Respiratory Infection Stated Complaint: COUGH Time Seen by Provider: 02/04/25 18:43 Source: patient and RN notes reviewed Mode of arrival: ambulatory Limitations: no limitations History of Present Illness HPI Narrative: 29-year-old female with history of asthma presents with concern for cough, chest congestion, foul taste in her mouth. She reports she had COVID in December and then ran out of her Breo inhaler and her symptoms have been progressing. She reports history of pneumonia. She reports she is using her albuterol inhaler as often as she can. She last used it a few hours ago MD elicited complaint: cough Related Data Home Medications ?Medication ?Instructions ?Recorded ?Confirmed ?Last Taken ?Type albuterol sulfate 90 mcg/actuation 2 puff inhalation Q8H PRN 09/13/24 11/26/24 Unknown History aerosol inhaler shortness of breath or wheezing fluticasone furoate 100 1 inh inhalation Q24H 09/13/24 11/26/24 Unknown History mcg-vilanterol 25 mcg/dose inhalation powder (Breo Ellipta) bupropion HCl 150 mg 24 hr tablet, 150 mg PO DAILY 11/26/24 11/26/24 Unknown History extended release (Wellbutrin XL) fexofenadine 180 mg tablet 180 mg PO DAILY 11/26/24 11/26/24 Unknown History (Anjelica Allergy) fluticasone furoate 27.5 2 spray intranasal DAILY 11/26/24 11/26/24 Unknown History mcg/actuation nasal spray,suspension (Flonase Sensimist) montelukast 10 mg tablet 10 mg PO DAILY 11/26/24 11/26/24 Unknown History (Singulair) ipratropium 0.5 mg-albuterol 3 mg ml inhalation 02/04/25 Unknown History (2.5 mg base)/3 mL nebulization soln Allergies Allergy/AdvReac Type Severity Reaction Status Date / Time pseudoephedrine (From Allergy Unknown Unknown Verified 02/04/25 18:38 Sudafed) Review of Systems Review of Systems: CONSTITUTIONAL: Denies malaise, chills, sweats, or fever. EYES: Denies visual changes, redness, or discharge. ENT: Reports rhinorrhea, congestion, sinus pain, otalgia and sore throat. CARDIOVASCULAR: Denies chest pain, palpitations, or edema. RESPIRATORY: Reports cough and chest congestion. Denies dyspnea. GASTROINTESTINAL: Denies abdominal pain, nausea, vomiting, diarrhea SKIN: Denies rash or itching. MUSCULOSKELETAL: Denies myalgia. NEUROLOGIC: Denies headache. All systems reviewed & are unremarkable except as noted in HPI and below PMFSH Comments At time of signature, agree with nursing past medical, surgical, social and family history. There is no relevant family history pertinent to the presenting complaint Exam Narrative: GENERAL: Well-appearing, well-nourished, and in no acute distress. HEAD: Normocephalic EYES: PERRLA, conjunctivae clear ENT: Nares clear. Mucous membranes moist. TM pearly grayson with sharp light reflex bilaterally; no tragal tenderness. Oropharynx not erythematous without lesions. Tonsils not enlarged and without exudate, no drooling, no hoarseness, no trismus, uvula midline. NECK: Supple. No lymphadenopathy CHEST: Scattered wheeze and rhonchi noted. Breath sounds equal. No rales, or stridor. No respiratory distress, speaks in full sentences. HEART: Regular rate and rhythm. No murmur heard. SKIN: Warm, dry, no rash. NEURO: Alert and oriented x3. PSYCH: Normal mood and affect Course Course Emergency Course: Patient is aware of diagnosis, understands and agrees to treatment plan. Anticipatory guidance given. Patient agrees to follow-up as directed and is aware of reasons to seek care at the emergency department. Portions of this record may have been created with voice recognition software Level of Care: Express Care Visit Vital Signs Vital signs: Vital Signs Temperature 97.6 F 02/04/25 18:38 Pulse Rate 89 02/04/25 18:38 Respiratory Rate 16 02/04/25 18:38 Blood Pressure 142/92 H 02/04/25 18:38 Pulse Oximetry 99 02/04/25 18:38 Temperature 97.6 F 02/04/25 18:38 Pulse Rate 89 02/04/25 18:38 Respiratory Rate 16 02/04/25 18:38 Blood Pressure 142/92 H 02/04/25 18:38 Pulse Oximetry 99 02/04/25 18:38 Reviewed. MDM - URI/Sore Throat MDM Narrative Medical decision making narrative: Differential diagnosis considered: Hussein virus, strep pharyngitis, allergic rhinitis, upper respiratory tract infection, sinusitis, rhinosinusitis, nasopharyngitis. viral pharyngitis, otitis media, otitis externa, pneumonia, bronchitis, viral cough syndrome, viral syndrome, and influenza. Exam findings show no acute concerns or changes; patient is non-toxic appearing and is in no distress. Patient is appropriate for outpatient treatment and follow-up. Lab Data Attestation: I reviewed the patient's lab results. Critical Care Time Critical Care Time Critical Care Time: No Discharge Plan Discharge Clinical Impression: Lower respiratory tract infection Patient Disposition: Home Condition: Stable Instructions: Antibiotic Form, Pneumonia (ED) Additional Instructions: 1) Please follow-up with your primary care doctor in the next 1-2 days. 2) If you have any worsening of symptoms or any other urgent concerns please go to the ER. 3) Please take medications as prescribed and continue taking your home medications as usual. 4) Please read and follow information included in discharge instructions. Patient Language: Maltese Prescriptions: New doxycycline monohydrate 100 mg tablet 100 mg PO BID 7 Days Qty: 14 0RF prednisone 50 mg tablet 50 mg PO DAILY 5 Days Qty: 5 0RF No Action albuterol sulfate 90 mcg/actuation HFA aerosol inhaler 2 puff INHALATION Q8H PRN (Reason: shortness of breath or wheezing) fluticasone furoate-vilanterol [Breo Ellipta] 100-25 mcg/dose blister with device 1 inh INHALATION Q24H fexofenadine [Anjelica Allergy] 180 mg tablet 180 mg PO DAILY Flonase Sensimist 27.5 mcg/actuation spray,suspension 2 spray intranasal DAILY Rx Instructions: into each nostril montelukast [Singulair] 10 mg tablet 10 mg PO DAILY bupropion HCl [Wellbutrin XL] 150 mg tablet extended release 24 hr 150 mg PO DAILY ipratropium-albuterol 0.5 mg-3 mg(2.5 mg base)/3 mL solution for nebulization INHALATION Follow-up/Referrals: Reece,Laurie [Other] Stand Alone Forms: Work/School Release IP Time of Disposition: 18:52
== END 2025-02-04 18:54 | disposition home or self-care (01) ==
PROVIDERS: Emergency Provider Nurse Practitioner
DX: J22 Unspecified acute lower respiratory infection (principal); J45.909 Unspecified asthma, uncomplicated; Z86.16 Personal history of COVID-19
CPT/HCPCS: 99213; G0463

== ENCOUNTER 2025-02-10 17:08 | Emergency (ER) | payer OTHER, SELFPAY ==
[2025-02-10 17:19] VITALS: BP 157/83; PULSE 100; RESP 18; TEMP 36.3; O2SAT 98
--- NOTE | 2025-02-10 18:01 | ED.NECK ---
HPI - Neck Pain/Injury General Chief Complaint: Neck Pain/Injury Stated Complaint: Neck Pain Time Seen by Provider: 02/10/25 17:40 Source: patient and RN notes reviewed Mode of arrival: ambulatory Limitations: no limitations History of Present Illness HPI Narrative: 29-year-old female presents [facility] complaining of left-sided neck pain for the last 4 days. Patient denies any apparent injuries or falls. Patient said she woke up with the pain, then a couple days later she developed pain in her right neck the pain in her right neck subsided she continues to have pain in her left neck. Patient says she can feel it into her left trapezius muscle. He says the pain is worse with movements of her neck. Patient denies any numbness, tingling, weakness, or any other symptoms. Patient has been doing rice therapy with some relief. Patient has been taking Tylenol and ibuprofen as well to help with the pain. Related Data Home Medications ?Medication ?Instructions ?Recorded ?Confirmed ?Last Taken ?Type albuterol sulfate 90 mcg/actuation 2 puff inhalation Q8H PRN 09/13/24 11/26/24 Unknown History aerosol inhaler shortness of breath or wheezing fluticasone furoate 100 1 inh inhalation Q24H 09/13/24 11/26/24 Unknown History mcg-vilanterol 25 mcg/dose inhalation powder (Breo Ellipta) bupropion HCl 150 mg 24 hr tablet, 150 mg PO DAILY 11/26/24 11/26/24 Unknown History extended release (Wellbutrin XL) fexofenadine 180 mg tablet 180 mg PO DAILY 11/26/24 11/26/24 Unknown History (Anjelica Allergy) fluticasone furoate 27.5 2 spray intranasal DAILY 11/26/24 11/26/24 Unknown History mcg/actuation nasal spray,suspension (Flonase Sensimist) montelukast 10 mg tablet 10 mg PO DAILY 11/26/24 11/26/24 Unknown History (Singulair) ipratropium 0.5 mg-albuterol 3 mg ml inhalation 02/04/25 Unknown History (2.5 mg base)/3 mL nebulization soln Allergies Allergy/AdvReac Type Severity Reaction Status Date / Time pseudoephedrine (From Allergy Unknown Unknown Verified 02/10/25 17:38 Sudafed) Review of Systems Review of Systems: CONSTITUTIONAL: Denies fever, chills, or sweats. EYES: Denies visual changes, redness, or discharge. ENT: Denies rhinorrhea, congestion, sore throat, or otalgia. CARDIOVASCULAR: Denies chest pain, palpitations, or edema. RESPIRATORY: Denies cough or dyspnea. GASTROINTESTINAL: Denies abdominal pain, nausea, vomiting, or diarrhea. GENITOURINARY: Denies dysuria or hematuria. SKIN: Denies rash or itching. MUSCULOSKELETAL: Positive for neck pain. Denies back pain, joint pain, or myalgia. NEUROLOGIC: Denies headache, numbness, or weakness. PSYCHIATRIC: Denies anxiety or depression. All other systems reviewed are negative, except as documented in HPI. PMFSH Comments At the time of my signature, I reviewed and agree with the nursing past medical, surgical, social, and family history. There is no relevant family history pertinent to the patient complaint. Exam Narrative: GENERAL: This is a well-nourished, well-developed adult, in no apparent distress. They are non ill-appearing, nontoxic appearing. HEAD: normocephalic, atraumatic. EYES: Sclera clear/white. Conjunctiva normal. Vision is grossly intact. Extraocular movements intact EARS: External ears normal, Hearing grossly intact. NOSE: External nose normal THROAT: Mucous membranes moist, NECK: Neck supple, non-tender without lymphadenopathy, masses or thyromegaly. Left trapezius muscle tender to palpate throughout. No cervical point tenderness, crepitus, or step-offs. No midline tenderness. CARDIOVASCULAR: Regular rate and rhythm without murmurs, gallops, or rubs. RESPIRATORY: Respiratory rate normal, respiratory effort nonlabored, no respiratory distress SKIN: warm, Dry, intact with no suspicious lesions or rash, good texture and turgor. NEURO: awake, alert, and oriented to person, place and time. There were no obvious focal neurologic abnormalities. EXTREMITIES: No joint tenderness, effusion, or edema noted. Course Course Emergency Course: Portions of this record may have been created with voice recognition software Level of Care: Express [facility] Visit Vital Signs Vital signs: Vital Signs Temperature 97.3 F L 02/10/25 17:19 Pulse Rate 100 02/10/25 17:19 Respiratory Rate 18 02/10/25 17:19 Blood Pressure 157/83 H 02/10/25 17:19 Pulse Oximetry 98 02/10/25 17:19 Temperature 97.3 F L 02/10/25 17:19 Pulse Rate 100 02/10/25 17:19 Respiratory Rate 18 02/10/25 17:19 Blood Pressure 157/83 H 02/10/25 17:19 Pulse Oximetry 98 02/10/25 17:19 Reviewed MDM - Neck Pain/Injury MDM Narrative Medical decision making narrative: Patient likely has a neck muscle sprain. Recommend supportive therapy, will send the prescription a muscle relaxers to pharmacy. Discussed physical exam findings. Advised supportive measures and signs/symptoms to go to the ER. Pt is appropriate for outpt treatment and f/u. Differential Diagnosis Differential diagnosis: Likely cervical radiculopathy, cervical spondylosis and strain of neck muscle Critical Care Time Critical Care Time Critical Care Time: No Discharge Plan Discharge Clinical Impression: Strain of neck muscle Qualifiers: Encounter type: initial encounter Qualified Code(s): S16.1XXA - Strain of muscle, fascia and tendon at neck level, initial encounter Patient Disposition: Home Condition: Stable Instructions: Neck Pain (ED) Additional Instructions: Take the muscle relaxer as directed. Do not drive or operate heavy machine, or work while taking the medication as it can make you drowsy. You may take ibuprofen 600 mg to 800 mg every 6-8 hours. Do not exceed more than 800 mg of ibuprofen per dose. Do not exceed more than 3200 mg ibuprofen in a day. You may take up to 1000 mg Tylenol every 6-8 hours. Do not exceed 1000 mg per dose, do exceed more than 4000 mg of Tylenol in a day. You may apply ice or heat 10-15 minutes at a time a few times a day. Follow-up with PCP in 1 week especially pain is persisting. Go to the ER for any numbness or tingling, one-sided weakness, severe pains, fevers, or any serious concerns. Patient Language: British Prescriptions: New methocarbamol 750 mg tablet 750 mg PO TID Qty: 16 0RF No Action albuterol sulfate 90 mcg/actuation HFA aerosol inhaler 2 puff INHALATION Q8H PRN (Reason: shortness of breath or wheezing) fluticasone furoate-vilanterol [Breo Ellipta] 100-25 mcg/dose blister with device 1 inh INHALATION Q24H fexofenadine [Anjelica Allergy] 180 mg tablet 180 mg PO DAILY Flonase Sensimist 27.5 mcg/actuation spray,suspension 2 spray intranasal DAILY Rx Instructions: into each nostril montelukast [Singulair] 10 mg tablet 10 mg PO DAILY bupropion HCl [Wellbutrin XL] 150 mg tablet extended release 24 hr 150 mg PO DAILY ipratropium-albuterol 0.5 mg-3 mg(2.5 mg base)/3 mL solution for nebulization INHALATION doxycycline monohydrate 100 mg tablet 100 mg PO BID 7 Days Qty: 14 0RF prednisone 50 mg tablet 50 mg PO DAILY 5 Days Qty: 5 0RF Follow-up/Referrals: PHYSICIAN,GROUNDS KEEPER [Primary Care Provider, Internal Medicine] Time of Disposition: 17:59
== END 2025-02-10 18:02 | disposition home or self-care (01) ==
DX: S16.1XXA Strain of muscle, fascia and tendon at neck level, initial encounter (principal); X58.XXXA Exposure to other specified factors, initial encounter; J45.909 Unspecified asthma, uncomplicated
CPT/HCPCS: 99213; G0463

== ENCOUNTER 2025-04-05 13:05 | Emergency (ER) | payer OTHER, SELFPAY ==
--- NOTE | ~2025-04-05 | XR_ITS ---
EXAMINATION: XR chest 2V, 04/05/2025 14:00 WIRE REPAIRER HISTORY: SOB and wheezing COMPARISON: No comparisons available. Technique: 2 views obtained. Findings: The lungs are clear, no effusion. No pneumothorax. Heart is normal size. Mediastinal and hilar contours are within normal limits. Bony thorax no acute abnormality. Impression: No acute cardiopulmonary abnormality. Reviewed, dictated and finalized at location P. REPAIRER Impression: No acute cardiopulmonary abnormality.
[2025-04-05 13:15] VITALS: BP 132/94; PULSE 82; RESP 20; TEMP 36.6; O2SAT 100
--- NOTE | 2025-04-05 13:18 | ED.GENADULT ---
HPI - General Adult General Chief complaint: Upper Respiratory Infection Stated complaint: Wheezing Time Seen by Provider: 04/05/25 13:18 Source: patient Mode of arrival: ambulatory Limitations: no limitations History of Present Illness HPI narrative: 29-year-old female patient presents to the [facility] with complaints of shortness of breath wheezing past 2-3 days. Patient does have history of asthma states she is out of her inhaler but has been using her albuterol nebulizer treatments 1-2 times daily. Patient states she has also had congestion, runny nose but denies any fevers that she is aware of. Related Data Home Medications ?Medication ?Instructions ?Recorded ?Confirmed ?Last Taken ?Type albuterol sulfate 90 mcg/actuation 2 puff inhalation Q8H PRN 09/13/24 04/05/25 Unknown History aerosol inhaler shortness of breath or wheezing fluticasone furoate 100 1 inh inhalation Q24H 09/13/24 04/05/25 Unknown History mcg-vilanterol 25 mcg/dose inhalation powder (Breo Ellipta) bupropion HCl 150 mg 24 hr tablet, 150 mg PO DAILY 11/26/24 04/05/25 Unknown History extended release (Wellbutrin XL) fexofenadine 180 mg tablet 180 mg PO DAILY 11/26/24 04/05/25 Unknown History (Anjelica Allergy) fluticasone furoate 27.5 2 spray intranasal DAILY 11/26/24 04/05/25 Unknown History mcg/actuation nasal spray,suspension (Flonase Sensimist) montelukast 10 mg tablet 10 mg PO DAILY 11/26/24 04/05/25 Unknown History (Singulair) ipratropium 0.5 mg-albuterol 3 mg ml inhalation 02/04/25 Unknown History (2.5 mg base)/3 mL nebulization soln Allergies Allergy/AdvReac Type Severity Reaction Status Date / Time pseudoephedrine (From Allergy Unknown Unknown Verified 04/05/25 13:17 Sudafed) Review of Systems Review of Systems: CONSTITUTIONAL: Denies fever, chills, or sweats. EYES: Denies visual changes, redness, or discharge. ENT: Positive rhinorrhea, congestion, denies sore throat, or otalgia. CARDIOVASCULAR: Denies chest pain, palpitations, or edema. RESPIRATORY: positive cough positive dyspnea. GASTROINTESTINAL: Denies abdominal pain, nausea, vomiting, or diarrhea. GENITOURINARY: Denies dysuria or hematuria. SKIN: Denies rash or itching. MUSCULOSKELETAL: Denies back pain, joint pain, or myalgia. NEUROLOGIC: Denies headache, numbness, or weakness. PSYCHIATRIC: Denies anxiety or depression. PMFSH Comments At the time of my signature I agree with nursing past medical history, surgical, social, and family history. There is no relevant family history pertinent to the presenting complaint. Exam Narrative: GENERAL: Well-appearing, well-nourished, and in no acute distress. HEAD: Normocephalic, atraumatic. EYES: PERRLA and EOMI. ENT: Nares with erythema edema noted bilaterally, no rhinorrhea or epistaxis. Mucous membranes moist. posterior pharynx with no erythema, tonsillar enlargement, exudates or lesions present. Bilateral TMs are clear with no erythema or foreign bodies the canal. NECK: Supple. No lymphadenopathy CHEST: Expiratory wheezing noted to bilateral lower lobes on auscultation. No respiratory distress. no tripoding noted. HEART: Regular rate and rhythm. No murmur heard. Normal peripheral pulses. ABDOMEN: Soft, nontender, nondistended, normal active bowel sounds. EXTREMITIES: Normal range of motion. No edema. SKIN: Warm, dry, no rash. NEURO: No focal deficits. Alert and oriented x3. Course Course Level of Care: Express Care Visit Reevaluation(s) Reevaluation #1: re-evaluated patient after her breathing treatment had completed. Patient states she is feeling a little bit better but has very mild inspiratory wheezing noted to the right lobe but left lobe is clear at this time. Discussed with patient we will discharge her home with an albuterol inhaler refill that I want her to do every 4 hours for least the next 2-3 days as well as an oral steroid. Patient verbalized understanding denies any other questions or concerns at this time. Date: 04/05/25 Time: 14:27 Vital Signs Vital signs: Vital Signs Oxygen Delivery Room Air 04/05/25 13:13 Temperature 36.6 C 04/05/25 13:15 Pulse Rate 82 04/05/25 13:15 Respiratory Rate 20 04/05/25 13:15 Blood Pressure 132/94 H 04/05/25 13:15 Pulse Oximetry 100 04/05/25 13:15 Oxygen Delivery Room Air 04/05/25 13:15 Vital signs reviewed. The patient has been informed that they may have pre-hypertension or Hypertension based on a BP reading in the department. I recommend that the patient call the primary care provider listed on their discharge instructions or a physician of their choice this week to arrange follow up for further evaluation of possible pre-hypertension or Hypertension Medical Decision Making MDM Narrative Medical decision making narrative: Plan care for patient is to swab her today for COVID and influenza as well as do a chest x-ray to rule out any pneumonia or underlying cause of the wheeziness. We will provide patient a DuoNeb in the clinic today. If all of these are negative will most likely discharge home with a refill on her albuterol inhaler and some oral steroids. Differential Diagnosis Differential Diagnosis: Differential diagnosis: Allergic rhinitis, chronic sinusitis, tonsillitis, acute sinusitis, infectious mononucleosis, seasonal influenza, pertussis, diphtheria, meningococcal disease, viral syndrome, viral bronchitis, RSV, COVID-19 Vital Signs Vital Signs: Vital Signs Oxygen Delivery Room Air 04/05/25 13:13 Temperature 36.6 C 04/05/25 13:15 Pulse Rate 82 04/05/25 13:15 Respiratory Rate 20 04/05/25 13:15 Blood Pressure 132/94 H 04/05/25 13:15 Pulse Oximetry 100 04/05/25 13:15 Oxygen Delivery Room Air 04/05/25 13:15 Imaging Data Radiologist's impression: [facility] [address] [place] [address] XRay Report Signed Patient: Kristina Markham : 1995 MR#: [id number] Age: 29 Acct:[id number] Loc: [facility] ADM Date: 04/05/[address]: Ordering Physician: Kassy Franklin TRUCK MANAGER Date of Service: 04/05/25 Procedure(s): XR chest 2V Accession Number(s): [id number] cc: MULTI OPERATION MACHINE OPERATOR PHYSICIAN; Kassy Franklin TRUCK MANAGER~ EXAMINATION: XR chest 2V, 04/05/2025 14:00 [facility] HISTORY: SOB and wheezing COMPARISON: No comparisons available. Technique: 2 views obtained. Findings: The lungs are clear, no effusion. No pneumothorax. Heart is normal size. Mediastinal and hilar contours are within normal limits. Bony thorax no acute abnormality. Impression: No acute cardiopulmonary abnormality. Reviewed, dictated and finalized at location [facility] Critical Care Time Critical Care Time Critical Care Time: No Discharge Plan Discharge Clinical Impression: Asthma exacerbation, Wheezing Patient Disposition: Home Condition: Stable Instructions: Antibiotic Form, Reactive Airways Disease (ED), Wheezing (ED) Additional Instructions: Wheezing conditions can change rapidly. He can be doing well and then have difficulty breathing only a short while later. Some things worsen wheezing or colds, smoke, pets, dust, allergies, and exercise. Follow-up with your primary care physician in the next 5-7 days. Increase fluid intake. May take Tylenol or ibuprofen as directed for fever. No smoking!! This is very important. Smokers in the shower and change clothes before entering the house. Cigarette smoke or odor is harmful to wheezing lungs. Calling her doctor return to the emergency department if your condition worsens or: Wheezing is not better. Breathing is difficult or to fast. There are retractions (the skin between or under the ribs sucks and when breathing). Chest pain occurs. Drowsy or sleepy. Pale color or blue/grayson color is seen in the lips or fingernails (call 911). Patient Language: Citizen [place] Prescriptions: New prednisone 20 mg tablet 40 mg PO DAILY 5 Days Qty: 10 0RF albuterol sulfate [Ventolin HFA] 90 mcg/actuation HFA aerosol inhaler 2 puff INHALATION .Q4 hours PRN (Reason: cough) Qty: 18 0RF No Action albuterol sulfate 90 mcg/actuation HFA aerosol inhaler 2 puff INHALATION Q8H PRN (Reason: shortness of breath or wheezing) fluticasone furoate-vilanterol [Breo Ellipta] 100-25 mcg/dose blister with device 1 inh INHALATION Q24H fexofenadine [Anjelica Allergy] 180 mg tablet 180 mg PO DAILY Flonase Sensimist 27.5 mcg/actuation spray,suspension 2 spray intranasal DAILY Rx Instructions: into each nostril montelukast [Singulair] 10 mg tablet 10 mg PO DAILY bupropion HCl [Wellbutrin XL] 150 mg tablet extended release 24 hr 150 mg PO DAILY ipratropium-albuterol 0.5 mg-3 mg(2.5 mg base)/3 mL solution for nebulization INHALATION doxycycline monohydrate 100 mg tablet 100 mg PO BID 7 Days Qty: 14 0RF prednisone 50 mg tablet 50 mg PO DAILY 5 Days Qty: 5 0RF methocarbamol 750 mg tablet 750 mg PO TID Qty: 16 0RF Follow-up/Referrals: PHYSICIAN,MULTI OPERATION MACHINE OPERATOR [Primary Care Provider, Internal Medicine] Time of Disposition: 14:25
[2025-04-05] MEDS: IPRATROPIUM 0.5 MG/ALBUTEROL SULFATE 2.5 MG (BASE) AMPUL.NEB 3 ML INHALATION (14:09)
[2025-04-05 14:30] VITALS: O2SAT 95
[2025-04-05 14:39] LABS: EDCOVIDSCREEN Negative (Negative); EDINFLUASCREEN Negative (Negative); EDINFLUBSCREEN Negative (Negative)
== END 2025-04-05 14:30 | disposition home or self-care (01) ==
PROVIDERS: Emergency Provider Nurse Practitioner Family
DX: J45.901 Unspecified asthma with (acute) exacerbation (principal); Z20.822 Contact with and (suspected) exposure to COVID-19
CPT/HCPCS: 71046; 87426; 87804; 94640; 99213; G0463